=== PATIENT | male | born 1965 | race Caucasian/White ===

== ENCOUNTER 2018-05-28 07:12 | Inpatient (IN) | payer MEDICAID, OTHER ==
--- NOTE | 2018-05-28 07:44 | ED PDOC ---
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 Additionally, he reports experiencing shortness of breath, productive cough with green phlegm, congestion, runny nose, nausea, diaphoresis, dizziness, and bodyaches for the past 2 days. No vomiting, abdominal pain, or similar symptoms in the past. 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 PCP: none provided Past Medical History Reviewed: Historical Data, Nursing Documentation, Vital Signs Vital Signs: Last Vital Signs Temp 98.5 F 05/28/18 07:21 Pulse 97 H 05/28/18 07:21 Resp 17 05/28/18 07:21 BP 118/71 05/28/18 07:21 Pulse Ox 98 05/28/18 07:25 - Medical History PMH: Asthma, COPD, Depression, Fractures (right elbow), HTN, Hypercholesterolemia, Hyperthyroidism, Hypothyroidism, Paranoia (As per MD report), Sleep Apnea Denies: Alzheimer's Disease, Anemia, Atrial Fibrillation, CAD, HIV, Chronic Kidney Disease Comment Only: Anxiety (As per MD report), Bipolar Disorder (As per MD report), Cardia Arrhythmia (As per MD report), CHF (As per MD report), Crohn's Disease (As per MD report), Diverticulitis (As per MD report), Multiple Sclerosis (As per MD report), Osteoporosis (As per MD report), Pancreatitis (As per MD report), Parkinson's Disease (As per MD report), Pneumonia (08/18/13 as per MD report), Post Traumatic Stress Disorder (As per MD report), Rheumatoid Arthritis (As per MD report), Schizophrenia (As per MD report), Sexually Transmi tted Disease (As per MD report) - Surgical History Surgical History: Comment Only: Pacemaker (As per MD report) - Family History Family History: States: Unknown Family Hx - Social History Current smoker - smoking cessation education provided: No Alcohol: None Drugs: Denies - Immunization History Hx Tetanus Toxoid Vaccination: No Hx Influenza Vaccination: No Hx Pneumococcal Vaccination: No - Home Medications Home Medications: Ambulatory Orders Medication Instructions Recorded Aspirin [Ecotrin] 81 mg PO DAILY 05/28/18 Levothyroxine [Synthroid] 150 mg PO DAILY 05/28/18 Pantoprazole Sodium [Protonix] 20 mg PO DAILY 05/28/18 lamiVUDine/Zidovudine [Combivir 1 puff PO DAILY 05/28/18 150 MG-300 MG] traMADol [Ultram] 50 mg PO DAILY 05/28/18 - Allergies Allergies/Adverse Reactions: Allergies Allergy/AdvReac Type Severity Reaction Status Date / Time No Known Allergies Allergy Verified 05/28/18 07:25 Review of Systems ROS Statement: Except As Marked, All Systems Reviewed And Found Negative Constitutional: Positive for: Sweats, Other (generalized bodyaches) ENT: Positive for: Nose Discharge Cardiovascular: Positive for: Chest Pain (midsternal) Respiratory: Positive for: Cough, Shortness of Breath, Sputum (green, thick) Gastrointestinal: Positive for: Nausea. Negative for: Vomiting, Abdominal Pain Neurological: Positive for: Dizziness Physical Exam - Reviewed Nursing Documentation Reviewed: Yes Vital Signs Reviewed: Yes - Physical Exam Appears: Positive for: No Acute Distress, Uncomfortable Head Exam: Positive for: ATRAUMATIC, NORMAL INSPECTION, NORMOCEPHALIC Skin: Positive for: Normal Color. Negative for: Rash Eye Exam: Positive for: Normal appearance, EOMI, PERRL ENT: Positive for: Nasal Congestion. Negative for: Pharyngeal Erythema Cardiovascular/Chest: Positive for: Regular Rate, Rhythm. Negative for: Murmur Respiratory: Positive for: Decreased Breath Sounds, Wheezing (expiratory bilaterally) Pulses-Dorsalis Pedis (L): 2+ Pulses-Dorsalis Pedis (R): 2+ Gastrointestinal/Abdominal: Positive for: Normal Exam, Soft. Negative for: Tenderness Back: Positive for: Normal Inspection Extremity: Positive for: Normal ROM (upper/lower). Negative for: Pedal Edema (bilaterally), Calf Tenderness (upper/lower) Neurological/Psych: Positive for: Awake, Alert, Oriented (x3), Lethargic. Negat joshua for: Motor/Sensory Deficits - Laboratory Results Result Diagrams: 05/28/18 08:04 05/28/18 08:04 Interpretation Of Abn Labs: 3.5 k - ECG ECG: Positive for: Interpreted By Me, Viewed By Me ECG Rhythm: Positive for: Nonspecific Changes O2 Sat by Pulse Oximetry: 98 (RA) Pulse Ox Interpretation: Normal - Radiology X-Ray: Read By Radiologist X-Ray Interpretation: No Acute Disease - Progress ED Course And Treament: 1136: Stable. AAOx3. Spoke with Isaak for Dr. Landers. Will admit tele obs. No pain. Medical Decision Making Medical Decision Making: Time: 734 Initial Plan: * Labs with blood culture * EKG * CXR * Duoneb INH * IV fluid * Solu-Medrol IVP * Influenza AB Time: 844 --Patient requests medication for persistent phlegm. Halina Moses additionally ordered. Scribe Attestation: Documented by Karolina Estrada, acting as a scribe for Jaime Rodriguez MD. Provider Scribe Attestation: All medical record entries made by the Scribe were at my direction and personally dictated by me. I have reviewed the chart and agree that the record accurately reflects my personal performance of the history, physical exam, medical decision making, and the department course for this patient. I have also personally directed, reviewed, and agree with the discharge instructions and disposition. Disposition - Clinical Impression Clinical Impression: Chest pain, COPD exacerbation, Hypokalemia - Patient ED Disposition Is Patient to be Admitted: Yes Counseled Patient/Family Regarding: Studies Performed, Diagnosis - Disposition Disposition Time: 10:00 Condition: FAIR - Pt Status Changed To: Hospital Disposition Of: Observation - POA Present On Arrival: None
[2018-05-28] MEDS ORDERED: Albuterol-Ipratrop 3 mg / 0.5 (3 ml) UD IH STA ×2 (07:49→07:50)
[2018-05-28] MEDS ORDERED: Albuterol-Ipratrop 3 mg / 0.5 (3 ml) UD INH STA (07:49)
[2018-05-28] MEDS ORDERED: Sodium Chloride 0.9% 1,000 ML IV STA (07:49)
[2018-05-28 08:08] LABS: ABG ALLEN TEST YES; ARTERIAL BLOOD GAS HCO3 25.2 mmol/L (21-28); ARTERIAL BLOOD GAS PCO2 37 mm/Hg (35-45); ARTERIAL BLOOD GAS PH 7.43 (7.35-7.45); ARTERIAL BLOOD GAS PO2 71 mm/Hg (80-100); ARTERIAL BLOOD GAS TCO2 25.7 mmol/L (22-28)
[2018-05-28 08:14] LABS: BASO # 0.1 K/uL (0.0-0.2); BASO % 0.8 % (0.0-2.0); EOS # 0.1 K/uL (0.0-0.7); EOS % 1.4 % (0.0-4.0); HEMOGLOBIN 17.1 g/dL (12.0-18.0); LYMPH # 1.9 K/uL (1.0-4.3); LYMPH % 18.7 % (20.0-40.0); MEAN CELL VOLUME 97.3 fl (80.0-94.0); MEAN CORPUSCULAR HEMOGLOBIN 33.1 pg (27.0-31.0); MEAN CORPUSCULAR HGB CONC 34.1 g/dL (33.0-37.0); MONO # 0.6 K/uL (0.0-0.8); MONO % 6.4 % (0.0-10.0); NEUT # 7.2 K/uL (1.8-7.0); NEUT % 72.7 % (50.0-75.0); NRBC % 0.2 % (0.0-0.0); RBC 5.17 Mil/uL (4.40-5.90); RED CELL DISTRIBUTION WIDTH 14.1 % (11.5-14.5); WHITE BLOOD COUNT 9.9 K/uL (4.8-10.8)
[2018-05-28 08:23] LABS: ALB/GLOB RATIO 1.4 (1.0-2.1); ALBUMIN 4.5 g/dL (3.5-5.0); BLOOD UREA NITROGEN 9 mg/dl (9-20); CALCIUM 9.8 mg/dL (8.4-10.2); GFR NON-AFRICAN AMERICAN > 60
[2018-05-28 08:26] LABS: ALT/SGPT 35 U/L (21-72); AST/SGOT 46 U/L (17-59)
[2018-05-28 08:31] LABS: B-TYPE NATRIURETIC PEPTIDE 574 pg/ml (0-900)
[2018-05-28 09:24] LABS: PROTHROMBIN TIME 11.2 Seconds (9.8-13.1)
--- NOTE | 2018-05-28 09:47 | RAD ---
Date of service: 05/28/2018 HISTORY: dyspnea COMPARISON: Chest radiograph dated 12/14/2015. TECHNIQUE: 1 view obtained. FINDINGS: LUNGS: No active pulmonary disease. PLEURA: No significant pleural effusion identified, no pneumothorax apparent. CARDIOVASCULAR: No aortic atherosclerotic calcification present. Normal cardiac size. No pulmonary vascular congestion. OSSEOUS STRUCTURES: No significant abnormalities. VISUALIZED UPPER ABDOMEN: Normal. OTHER FINDINGS: None. IMPRESSION: No active disease.
[2018-05-28] MEDS ORDERED: Potassium Chloride 20 mEq ER Tab PO STA (11:34)
[2018-05-28] MEDS ORDERED: Potassium Chloride 20 mEq ER Tab PO ONE (12:01)
[2018-05-28 16:01] LABS: PARTIAL THROMBOPLASTIN TIME 36.5 Seconds (25.6-37.1)
[2018-05-28] MEDS ORDERED: Albuterol-Ipratrop 3 mg / 0.5 (3 ml) UD INH PRN (17:02)
[2018-05-28 17:45] VITALS: BMI 44.5
[2018-05-28] MEDS ORDERED: Azithromycin 500 MG in Sodium Chloride 0.9% 250 ML IVPB SCH (18:45)
--- NOTE | 2018-05-28 20:30 | CARD ---
APPROVED REPORT Date of service: 05/28/2018 EKG Measurement Heart [id number] <Conclusion> Normal sinus rhythm Possible Left atrial enlargement Left ventricular hypertrophy with repolarization abnormality Cannot rule out Septal infarct, age undetermined Abnormal ECG
[2018-05-28] MEDS: Piperacillin/Tazobact 3.375 GM in Sodium Chloride 0.9% 100 ML IVPB SCH (21:24)
[2018-05-28] MEDS: guaiFENesin-DM 600-30 mg ER Tab PO SCH (21:31)
[2018-05-29] MEDS: Piperacillin/Tazobact 3.375 GM in Sodium Chloride 0.9% 100 ML IVPB SCH ×4 (04:26→21:43)
[2018-05-29 06:56] LABS: BASO % 0.1 % (0.0-2.0); HEMOGLOBIN 16.8 g/dL (12.0-18.0); LYMPH % 6.1 % (20.0-40.0); MEAN CELL VOLUME 98.6 fl (80.0-94.0); MEAN CORPUSCULAR HGB CONC 33.5 g/dL (33.0-37.0); MEAN PLATELET VOLUME 10.3 fl (7.2-11.7); MONO # 0.4 K/uL (0.0-0.8); MONO % 2.4 % (0.0-10.0); NEUT % 91.4 % (50.0-75.0); PLATELET COUNT 279 K/uL (130-400); RBC 5.08 Mil/uL (4.40-5.90); RED CELL DISTRIBUTION WIDTH 14.6 % (11.5-14.5); WHITE BLOOD COUNT 16.4 K/uL (4.8-10.8)
[2018-05-29 07:24] LABS: ALB/GLOB RATIO 1.4 (1.0-2.1); ALBUMIN 4.4 g/dL (3.5-5.0); ALT/SGPT 34 U/L (21-72); AST/SGOT 30 U/L (17-59); BLOOD UREA NITROGEN 11 mg/dl (9-20); CALCIUM 10.1 mg/dL (8.4-10.2); GFR NON-AFRICAN AMERICAN > 60
[2018-05-29] MEDS: guaiFENesin-DM 600-30 mg ER Tab PO SCH ×3 (08:58→18:37)
[2018-05-29] MEDS: Pantoprazole 20 mg EC Tab PO SCH (08:59)
[2018-05-29] MEDS ORDERED: COMBIVENT PO SCH (09:00)
[2018-05-29] MEDS: Levothyroxine 150 MCG TAB PO SCH (09:02)
[2018-05-29] MEDS: Albuterol-Ipratrop 3 mg / 0.5 (3 ml) UD INH SCH ×5 (10:10→23:29)
[2018-05-29] MEDS ORDERED: Sodium Chloride 3% for Inhalation 4 ML VIAL.NEB IH PRN (12:26)
[2018-05-29 13:10] LABS: LYMPHOCYTE 4 % (20-50); MONOCYTE 2 % (0-10); NEUTROPHIL 94 % (42-75); PLATELET ESTIMATE NORMAL (NORMAL); TOTAL CELLS COUNTED 100
[2018-05-29] MEDS: MethylPREDNISolone 40 mg Vial IVP SCH (18:33)
[2018-05-29] MEDS: Benzocaine/Menthol (Cepacol) Lozenge PO PRN (19:22)
--- NOTE | 2018-05-29 19:57 | CP.PCM.CON ---
History of Present Illness - History of Present Illness History of Present Illness: Pulmonary consult for a 53 Y/O M, due to COPD Exacerbation. PMHx: COPD/Asthma, Sleep Apnea, A Fib, CAD, HTN, Hypercholesterolemia, Hypothyroidism, Paranoia. Initially, Pt came to hospital for evaluation of CP L sided x 2 hrs [employer], pain was continue, tightness type, severe intensity 9:10, non radiated and no relief, associated to nausea, dizziness, no vomiting. 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 Aggravated factor: Exercise, ADL's. Pt denied: Fever, chills, v/d, abdominal pain, urinary symptoms, palpitations, syncope, recent travel out of [facility]. CXR: No active disease. Review of Systems - Constitutional Constitutional: As Per HPI - EENT Eyes: Other (negative) Ears: Other (negative) Nose/Mouth/Throat: Nasal Congestion - Cardiovascular Cardiovascular: Chest Pain - Respiratory Respiratory: Cough, Dyspnea, Dyspnea on Exertion, Change in Mucous Color, Pain with Coughing - Gastrointestinal Gastrointestinal: Nausea - Genitourinary Genitourinary: Other (negative) - Musculoskeletal Musculoskeletal: Arthralgias, Other (negative) - Integumentary Integumentary: Other (negative) - Neurological Neurological: Dizziness - Psychiatric Psychiatric: Other (negative) - Endocrine Endocrine: Other (negative) - Hematologic/Lymphatic Hematologic: Other (negative) Past Patient History - Infectious Disease Hx of Infectious Diseases: None - Past Medical History & Family History Past Medical History?: Yes Pertinent Family History: Unknown - Past Social History Smoking Status: Former Smoker Alcohol: None Drugs: Other (Former drug abuse (Cocaine)) Home Situation {Lives}: Alone - CARDIAC Hx Cardiac Disorders: Yes Hx Atrial Fibrillation: Yes Hx Cardia Arrhythmia: (As per MD report) Hx Congestive Heart Failure: (As per MD report) Hx Hypercholesterolemia: Yes Hx Hypertension: Yes Hx Pacemaker: Yes (As per MD report) - PULMONARY Hx Respiratory Disorders: Yes Hx Asthma: Yes Hx Chronic Obstructive Pulmonary Disease (COPD): Yes Hx Pneumonia: Yes (08/18/13 as per MD report) Hx Sleep Apnea: Yes - NEUROLOGICAL Hx Alzheimer's Disease: No Hx Multiple Sclerosis: (As per MD report) Hx Parkinson's Disease: (As per MD report) - HEENT Hx HEENT Problems: No - RENAL Hx Chronic Kidney Disease: No - ENDOCRINE/METABOLIC Hx Endocrine Disorders: Yes Hx Hyperthyroidism: Yes Hx Hypothyroidism: Yes - HEMATOLOGICAL/ONCOLOGICAL Hx Anemia: No - INTEGUMENTARY Hx Dermatological Problems: No - MUSCULOSKELETAL/RHEUMATOLOGICAL Hx Musculoskeletal Disorders: Yes Hx Falls: No Hx Fractures: Yes (right elbow) Hx Osteoporosis: (As per MD report) Hx Rheumatoid Arthritis: (As per MD report) - GASTROINTESTINAL Hx Crohn's Disease: (As per MD report) Hx Diverticulitis: (As per MD report) Hx Pancreatitis: (As per MD report) - GENITOURINARY/GYNECOLOGICAL Hx Sexually Transmitted Disorders: (As per MD report) - PSYCHIATRIC Hx Psychophysiologic Disorder: Yes Hx Anxiety: Yes (As per MD report) Hx Bipolar Disorder: (As per MD report) Hx Depression: Yes Hx Paranoia: Yes (As per MD report) Hx Post Traumatic Stress Disorder: (As per MD report) Hx Schizophrenia: (As per MD report) Hx Substance Use: No - SURGICAL HISTORY Hx Surgeries: Yes Hx Musculoskeletal Surgery: Yes (L hip replacement) Hx Open Reduction Internal Fixation: Yes (R elbow) - ANESTHESIA Hx Anesthesia: Yes Hx Anesthesia Reactions: No Hx Malignant Hyperthermia: No Meds Allergies/Adverse Reactions: Allergies Allergy/AdvReac Type Severity Reaction Status Date / Time No Known Allergies Allergy Verified 05/28/18 07:25 - Medications Medications: Current Medications Albuterol/Ipratropium (Duoneb 3 Mg/0.5 Mg (3 Ml) Ud) 3 ml INH RQ4 [facility] Last Admin: 05/29/18 19:53 Dose: 3 ml Aspirin (Ecotrin) 81 mg PO DAILY [facility] Last Admin: 05/29/18 08:54 Dose: 81 mg Benzocaine/Menthol (Cepacol Sore Throat) 1 susanne PO Q3 PRN PRN Reason: Sore Throat Last Admin: 05/29/18 19:22 Dose: 1 susanne Enoxaparin Sodium (Lovenox) 40 mg SC DAILY [facility]; Protocol Guaifenesin/Dextromethorphan (Mucinex-Dm 600-30 Mg) 2 tab PO BID [facility] Last Admin: 05/29/18 18:37 Dose: 2 tab Home Med (Lamivudine/Zidovudine [Combivir 150 Mg-300 Mg]) 1 puff PO DAILY [facility] Piperacillin Sod/Tazobactam (Sod 3.375 gm/ Sodium Chloride) 100 mls @ 100 mls/hr IVPB Q6 [facility]; Protocol Last Admin: 05/29/18 18:32 Dose: 100 mls/hr Levothyroxine Sodium (Synthroid) 150 mcg PO DAILY [facility] Last Admin: 05/29/18 09:02 Dose: 150 mcg Methylprednisolone (Solu-Medrol) 40 mg IVP Q8 [facility] Last Admin: 05/29/18 18:33 Dose: 40 mg Pantoprazole Sodium (Protonix Ec Tab) 20 mg PO DAILY [facility] Last Admin: 05/29/18 08:59 Dose: 20 mg Promethazine HCl/Codeine (Phenergan/Codeine Oral Syrup) 10 ml PO Q6 PRN PRN Reason: Cough Tramadol HCl (Ultram) 50 mg PO Q6 PRN PRN Reason: Pain, moderate (4-7) Last Admin: 05/29/18 18:53 Dose: 50 mg Physical Exam - Constitutional Appears: No Acute Distress - Head Exam Head Exam: NORMAL INSPECTION - Eye Exam Eye Exam: PERRL - ENT Exam ENT Exam: Mucous Membranes Moist - Neck Exam Neck exam: Positive for: Normal Inspection - Respiratory Exam Respiratory Exam: Decreased Breath Sounds (at bases b/l), Rhonchi, Wheezes - Cardiovascular Exam Cardiovascular Exam: REGULAR RHYTHM - GI/Abdominal Exam GI & Abdominal Exam: Normal Bowel Sounds, Soft - Extremities Exam Additional comments: Healed Fx R elbow, L THR - Back Exam Back exam: NORMAL INSPECTION - Neurological Exam Neurological exam: Alert, Oriented x3 Additional comments: No motor/sensory deficit. - Psychiatric Exam Additional comments: Calm - Skin Skin Exam: Warm Results - Vital Signs Recent Vital Signs: Last Vital Signs Temp 97.8 F 05/29/18 16:20 Pulse 100 H 05/29/18 16:20 Resp 18 05/29/18 16:20 BP 126/86 05/29/18 16:20 Pulse Ox 92 L 05/29/18 16:20 reviewed Oren - Labs Result Diagrams: 05/29/18 05:32 05/30/18 11:05 Labs: Laboratory Results - last 24 hr 05/29/18 05/29/18 05/29/18 05:32 05:32 05:32 WBC 16.4 H D RBC 5.08 Hgb 16.8 Hct 50.1 MCV 98.6 H MCH 33.0 H MCHC 33.5 RDW 14.6 H Plt Count 279 MPV 10.3 Neut % (Auto) 91.4 H Lymph % (Auto) 6.1 L [place] % (Auto) 2.4 Eos % (Auto) 0.0 Baso % (Auto) 0.1 Neut # (Auto) 15.0 H Lymph # (Auto) 1.0 [place] # (Auto) 0.4 Eos # (Auto) 0.0 Baso # (Auto) 0.0 Neutrophils % (Manual) 94 H Lymphocytes % (Manual) 4 L Monocytes % (Manual) 2 Platelet Estimate Normal RBC Morphology Normal Sodium 136 Potassium 4.6 Chloride 102 Carbon Dioxide 24 Anion Gap 15 BUN 11 Creatinine 1.2 Est GFR ( Amer) > 60 Est GFR (Non-Af Amer) > 60 Random Glucose 160 H Calcium 10.1 Total Bilirubin 0.6 AST 30 ALT 34 Alkaline Phosphatase 56 Total Protein 7.6 Albumin 4.4 Globulin 3.1 Albumin/Globulin Ratio 1.4 Procalcitonin < 0.05 L reviewed J.P. - EKG Data EKG comments: reviewed J.P. - Imaging and Cardiology Chest x-ray Status: Report reviewed by me (DavidP.) Assessment & Plan (1) COPD exacerbation Status: Acute Priority: High (2) Nasal congestion Status: Acute Priority: High (3) Lung nodule seen on imaging study Status: Acute Comment: On 11/19/15. - Assessment and Plan (Free Text) Plan: F/U Sputum C-S, CT Chest, continue O2 NC 2 L/M, Duoneb, Solu-Medrol, Promethazine with Co, Mucinex DM and rest of Tx. - Date & Time Date: 05/29/18
[2018-05-29] MEDS: Enoxaparin 40 mg Syringe SC SCH (21:45)
[2018-05-30] MEDS: MethylPREDNISolone 40 mg Vial IVP SCH ×3 (00:05→16:35)
--- NOTE | 2018-05-30 03:00 | CP.PCM.HP ---
History of Present Illness - History of Present Illness History of Present Illness: HPI: 53 y/o male with a PMH of Asthma and COPD presented to the ED with worsening dyspnea and chest pain. As per the pt, he has been experiencing an increasing cough with yellow/green sputum in the week up to arrival, as well as flu-like symptoms. He is currently on combivent at home. Flu swab and CXR was do ne, both resulted as negative. As PNA and Influenza are ruled out at this time, this appears to be a COPD exacerbation. PMH: Asthma, COPD, Depression, Fractures (right elbow), HTN, Hypercholesterolemia, Hyperthyroidism, Hypothyroidism, Paranoia (As per MD report), Sleep Apnea. PSH: Pacemaker. Allergies: NKDA. Subjective Review of Systems: Reviewed and no additional remarkable complaints except occasional dyspnea. Objective Appears: Anxious, Non-toxic, No Acute Distress. Head Exam: NORMAL INSPECTION, normocephalic. Eye Exam: Normal eye inspection, EOMI, PERRLA. Respiratory Exam: NORMAL BREATHING PATTERN, breath sounds clear bilaterally. Cardiovascular Exam: +S1, +S2. RRR. GI & Abdominal Exam: Round, soft, non-tender. Neurological Exam: Alert, Awake, Oriented x3. Psychiatric exam: Normal mood. Calm and cooperative. Skin exam: Normal color, warm, dry. Assessment/Impression/Plan: 1.) COPD Exacerbation -Empiric antibiotic therapy: Zosyn. -Symptomatic treatment: Duonebs + Mucinex + Tessalon Perles. -Steroids: Decreased solu-medrol to 60 mg BID. -CXR revealed no acute disease. -Pulmonology consult appreciated input. -Leukocytosis secondary to steroids (solu-medrol). -Continue current treatment. Present on Admission - Present on Admission Any Indicators Present on Admission: No Past Patient History - Infectious Disease Hx of Infectious Diseases: None - Past Medical History & Family History Past Medical History?: Yes - Past Social History Smoking Status: Former Smoker - CARDIAC Hx Cardiac Disorders: Yes Hx Atrial Fibrillation: Yes Hx Cardia Arrhythmia: (As per MD report) Hx Congestive Heart Failure: (As per MD report) Hx Hypercholesterolemia: Yes Hx Hypertension: Yes Hx Pacemaker: Yes (As per MD report) - PULMONARY Hx Asthma: Yes Hx Chronic Obstructive Pulmonary Disease (COPD): Yes Hx Pneumonia: Yes (08/18/13 as per MD report) Hx Sleep Apnea: Yes - NEUROLOGICAL Hx Alzheimer's Disease: No Hx Multiple Sclerosis: (As per MD report) Hx Parkinson's Disease: (As per MD report) - HEENT Hx HEENT Problems: No - RENAL Hx Chronic Kidney Disease: No - ENDOCRINE/METABOLIC Hx Hyperthyroidism: Yes Hx Hypothyroidism: Yes - HEMATOLOGICAL/ONCOLOGICAL Hx Anemia: No - INTEGUMENTARY Hx Dermatological Problems: No - MUSCULOSKELETAL/RHEUMATOLOGICAL Hx Falls: No Hx Fractures: Yes (right elbow) Hx Osteoporosis: (As per MD report) Hx Rheumatoid Arthritis: (As per MD report) - GASTROINTESTINAL Hx Crohn's Disease: (As per MD report) Hx Diverticulitis: (As per MD report) Hx Pancreatitis: (As per MD report) - GENITOURINARY/GYNECOLOGICAL Hx Sexually Transmitted Disorders: (As per MD report) - PSYCHIATRIC Hx Anxiety: (As per MD report) Hx Bipolar Disorder: (As per MD report) Hx Depression: Yes Hx Paranoia: Yes (As per MD report) Hx Post Traumatic Stress Disorder: (As per MD report) Hx Schizophrenia: (As per MD report) Hx Substance Use: No - ANESTHESIA Hx Anesthesia: Yes Hx Anesthesia Reactions: No Hx Malignant Hyperthermia: No Meds Allergies/Adverse Reactions: Allergies Allergy/AdvReac Type Severity Reaction Status Date / Time No Known Allergies Allergy Verified 05/28/18 07:25 Results - Vital Signs Recent Vital Signs: Last Vital Signs Temp 97.5 F L 05/30/18 01:00 Pulse 80 05/30/18 01:00 Resp 20 05/30/18 01:00 BP 132/75 05/30/18 01:00 Pulse Ox 95 05/30/18 01:00 - Labs Result Diagrams: 05/29/18 05:32 05/29/18 05:32 Labs: Laboratory Results - last 24 hr 05/29/18 05/29/18 05/29/18 05:32 05:32 05:32 WBC 16.4 H D RBC 5.08 Hgb 16.8 Hct 50.1 MCV 98.6 H MCH 33.0 H MCHC 33.5 RDW 14.6 H Plt Count 279 MPV 10.3 Neut % (Auto) 91.4 H Lymph % (Auto) 6.1 L [place] % (Auto) 2.4 Eos % (Auto) 0.0 Baso % (Auto) 0.1 Neut # (Auto) 15.0 H Lymph # (Auto) 1.0 [place] # (Auto) 0.4 Eos # (Auto) 0.0 Baso # (Auto) 0.0 Neutrophils % (Manual) 94 H Lymphocytes % (Manual) 4 L Monocytes % (Manual) 2 Platelet Estimate Normal RBC Morphology Normal Sodium 136 Potassium 4.6 Chloride 102 Carbon Dioxide 24 Anion Gap 15 BUN 11 Creatinine 1.2 Est GFR ( Amer) > 60 Est GFR (Non-Af Amer) > 60 Random Glucose 160 H Calcium 10.1 Total Bilirubin 0.6 AST 30 ALT 34 Alkaline Phosphatase 56 Total Protein 7.6 Albumin 4.4 Globulin 3.1 Albumin/Globulin Ratio 1.4 Procalcitonin < 0.05 L Assessment & Plan (1) COPD exacerbation Status: Acute
[2018-05-30] MEDS: Piperacillin/Tazobact 3.375 GM in Sodium Chloride 0.9% 100 ML IVPB SCH ×2 (04:17→09:07)
[2018-05-30] MEDS: Albuterol-Ipratrop 3 mg / 0.5 (3 ml) UD INH SCH ×5 (05:02→19:18)
[2018-05-30] MEDS: Levothyroxine 150 MCG TAB PO SCH (09:09)
[2018-05-30] MEDS: guaiFENesin-DM 600-30 mg ER Tab PO SCH ×2 (09:10→16:36)
[2018-05-30] MEDS: Enoxaparin 40 mg Syringe SC SCH (09:10)
[2018-05-30] MEDS: Pantoprazole 20 mg EC Tab PO SCH (09:11)
[2018-05-30] MEDS: Promethazine/Cod 6.25mg-10mg/5ml Syr UD PO PRN ×2 (09:27→16:54)
[2018-05-30 11:46] LABS: BLOOD UREA NITROGEN 14 mg/dl (9-20); CALCIUM 10.6 mg/dL (8.4-10.2); GFR NON-AFRICAN AMERICAN 58
[2018-05-30] MEDS: Acetylcysteine 20% Inhal Soln (4ml) INH SCH ×2 (12:23→19:18)
--- NOTE | 2018-05-30 15:09 | CT ---
Date of service: 05/30/2018 PROCEDURE: CT Chest without contrast HISTORY: COPD Exacerbation, Hx Pulmonary Nodule COMPARISON: 11/19/2015. CT thorax. Summary of findings on the comparison examination: 8 mm right lower lobe pulmonary nodule. TECHNIQUE: Contiguous axial images were obtained through the chest without intravenous contrast enhancement. Sagittal and coronal reconstructions were performed. Radiation dose: Total exam DLP = 616.86 mGy-cm. This CT exam was performed using one or more of the following dose reduction techniques: Automated exposure control, adjustment of the mA and/or kV according to patient size, and/or use of iterative reconstruction technique. FINDINGS: LUNGS: Stable pulmonary nodule right lower lobe, 8 mm. Parabronchial thickening/lower airway disease, mild. MEDIASTINUM: Unremarkable thoracic aorta. No aneurysm. Normal sized heart. Main pulmonary artery unremarkable. No vascular congestion. No lymphadenopathy. No aortic atherosclerotic calcification. PLEURA: No pleural fluid. No pneumothorax. BONES: No fracture. No destructive lesion. UPPER ABDOMEN: Grossly unremarkable. OTHER FINDINGS: None. IMPRESSION: Stable right lower lobe pulmonary nodule. Lower airway disease/bronchitis. No interval change.
--- NOTE | 2018-05-30 15:48 | CP.PCM.PN ---
Subjective - Date & Time of Evaluation Date of Evaluation: 05/30/18 Time of Evaluation: 14:20 - Subjective Subjective: F/U COPD Exacerbation. Cough with scanty amount of yellowish phlegms. Objective - Vital Signs/Intake and Output Vital Signs (last 24 hours): Temp Pulse Resp BP Pulse Ox 98.6 F 100 H 22 135/77 97 05/30/18 12:15 05/30/18 12:15 05/30/18 12:15 05/30/18 12:15 05/30/18 12:15 - Medications Medications: Current Medications Acetaminophen (Tylenol 325mg Tab) 650 mg PO Q6 PRN PRN Reason: Pain, moderate (4-7) Acetylcysteine (Acetylcysteine 20%) 2 ml INH RBID [facility] Last Admin: 05/30/18 12:23 Dose: Not Given Albuterol/Ipratropium (Duoneb 3 Mg/0.5 Mg (3 Ml) Ud) 3 ml INH RQ4 [facility] Last Admin: 05/30/18 15:23 Dose: 3 ml Aspirin (Ecotrin) 81 mg PO DAILY [facility] Last Admin: 05/30/18 09:09 Dose: 81 mg Benzocaine/Menthol (Cepacol Sore Throat) 1 susanne PO Q3 PRN PRN Reason: Sore Throat Last Admin: 05/29/18 19:22 Dose: 1 susanne Enoxaparin Sodium (Lovenox) 40 mg SC DAILY [facility]; Protocol Last Admin: 05/30/18 09:10 Dose: 40 mg Famotidine (Pepcid) 20 mg PO BID [facility] Last Admin: 05/30/18 11:31 Dose: 20 mg Guaifenesin/Dextromethorphan (Mucinex-Dm 600-30 Mg) 2 tab PO BID [facility] Last Admin: 05/30/18 09:10 Dose: 2 tab Home Med (Lamivudine/Zidovudine [Combivir 150 Mg-300 Mg]) 1 puff PO DAILY [facility] Lactulose (Enulose) 20 gm PO DAILY PRN PRN Reason: Constipation Last Admin: 05/30/18 13:52 Dose: 20 gm Levothyroxine Sodium (Synthroid) 150 mcg PO DAILY [facility] Last Admin: 05/30/18 09:09 Dose: 150 mcg Methylprednisolone (Solu-Medrol) 40 mg IVP Q8 [facility] Last Admin: 05/30/18 09:00 Dose: 40 mg Pantoprazole Sodium (Protonix Ec Tab) 20 mg PO DAILY [facility] Last Admin: 05/30/18 09:11 Dose: 20 mg Promethazine HCl/Codeine (Phenergan/Codeine Oral Syrup) 10 ml PO Q6 PRN PRN Reason: Cough Last Admin: 05/30/18 09:27 Dose: 10 ml Tramadol HCl (Ultram) 50 mg PO Q6 PRN PRN Reason: Pain, moderate (4-7) Last Admin: 05/30/18 09:26 Dose: 50 mg - Labs Labs: 05/29/18 05:32 05/30/18 11:05 PT 11.2 Seconds (9.8-13.1) 05/28/18 08:38 INR 1.0 05/28/18 08:38 APTT 36.5 Seconds (25.6-37.1) 05/28/18 08:38 - Constitutional Appears: No Acute Distress - Head Exam Head Exam: NORMAL INSPECTION - Eye Exam Eye Exam: PERRL - ENT Exam ENT Exam: Mucous Membranes Moist - Neck Exam Neck Exam: Normal Inspection - Respiratory Exam Respiratory Exam: Decreased Breath Sounds (At bases b/l), Rhonchi, Wheezes - Cardiovascular Exam Cardiovascular Exam: REGULAR RHYTHM - GI/Abdominal Exam GI & Abdominal Exam: Soft, Normal Bowel Sounds - Extremities Exam Additional comments: Healed Fx R elbow, L THR - Back Exam Back Exam: NORMAL INSPECTION - Neurological Exam Neurological Exam: Alert, Oriented x3. absent: Motor Sensory Deficit - Psychiatric Exam Additional comments: Calm - Skin Skin Exam: Warm Assessment and Plan (1) COPD exacerbation Status: Acute (2) Nasal congestion Status: Acute (3) Lung nodule seen on imaging study Status: Acute - Assessment and Plan (Free Text) Plan: F/U CT Chest, continue Duoneb, Solu-Medrol, Duoneb, Mucomyst, Prometh with Codeine and rest of Tx.
[2018-05-30] MEDS: Benzocaine/Menthol (Cepacol) Lozenge PO PRN (16:54)
--- NOTE | 2018-05-30 19:38 | CP.PCM.PN ---
Subjective - Date & Time of Evaluation Date of Evaluation: 05/30/18 Time of Evaluation: 10:00 - Subjective Subjective: patient seen and examined at bedside. Interim events noted complains of continued intermittent chest discomfort, cough and sob. denies cp/fever/chills. available diagnostic data reviewed Review of Systems All systems: reviewed and no additional remarkable complaints except mentioned above Objective Vital Signs Stable - Constitutional Appears: Non-toxic, No Acute Distress Head Exam: NORMAL INSPECTION Eye Exam: Normal appearance Respiratory Exam: NORMAL BREATHING PATTERN, wheezing bilaterally Cardiovascular Exam: +S1, +S2 GI & Abdominal Exam: Soft Neurological Exam: Alert, Awake Psychiatric exam: Normal Affect, Normal Mood Skin Exam: Normal Color, Warm Assessment and Plan monitor vitals monitor labs Cont meds Cont tx consultants appreciated input c/w steroids d/c IV abx, procalcitonin neg troponine trial pepcid CT chest today, pending rest of plan as ordered Objective - Vital Signs/Intake and Output Vital Signs (last 24 hours): Temp Pulse Resp BP Pulse Ox 98.6 F 93 H 16 112/77 95 05/30/18 16:31 05/30/18 16:31 05/30/18 16:31 05/30/18 16:31 05/30/18 16:31 - Medications Medications: Current Medications Acetaminophen (Tylenol 325mg Tab) 650 mg PO Q6 PRN PRN Reason: Pain, moderate (4-7) Last Admin: 05/30/18 16:52 Dose: 650 mg Acetylcysteine (Acetylcysteine 20%) 2 ml INH RBID [facility] Last Admin: 05/30/18 19:18 Dose: 2 ml Albuterol/Ipratropium (Duoneb 3 Mg/0.5 Mg (3 Ml) Ud) 3 ml INH RQ4 [facility] Last Admin: 05/30/18 19:18 Dose: 3 ml Aspirin (Ecotrin) 81 mg PO DAILY [facility] Last Admin: 05/30/18 09:09 Dose: 81 mg Benzocaine/Menthol (Cepacol Sore Throat) 1 susanne PO Q3 PRN PRN Reason: Sore Throat Last Admin: 05/30/18 16:54 Dose: 1 susanne Enoxaparin Sodium (Lovenox) 40 mg SC DAILY [facility]; Protocol Last Admin: 05/30/18 09:10 Dose: 40 mg Famotidine (Pepcid) 20 mg PO BID [facility] Last Admin: 05/30/18 16:35 Dose: 20 mg Guaifenesin/Dextromethorphan (Mucinex-Dm 600-30 Mg) 2 tab PO BID [facility] Last Admin: 05/30/18 16:36 Dose: 2 tab Home Med (Lamivudine/Zidovudine [Combivir 150 Mg-300 Mg]) 1 puff PO DAILY [facility] Lactulose (Enulose) 20 gm PO DAILY PRN PRN Reason: Constipation Last Admin: 05/30/18 13:52 Dose: 20 gm Levothyroxine Sodium (Synthroid) 150 mcg PO DAILY [facility] Last Admin: 05/30/18 09:09 Dose: 150 mcg Methylprednisolone (Solu-Medrol) 40 mg IVP Q8 [facility] Last Admin: 05/30/18 16:35 Dose: 40 mg Pantoprazole Sodium (Protonix Ec Tab) 20 mg PO DAILY [facility] Last Admin: 05/30/18 09:11 Dose: 20 mg Promethazine HCl/Codeine (Phenergan/Codeine Oral Syrup) 10 ml PO Q6 PRN PRN Reason: Cough Last Admin: 05/30/18 16:54 Dose: 10 ml Tramadol HCl (Ultram) 50 mg PO Q6 PRN PRN Reason: Pain, moderate (4-7) Last Admin: 05/30/18 09:26 Dose: 50 mg - Labs Labs: 05/29/18 05:32 05/30/18 11:05 PT 11.2 Seconds (9.8-13.1) 05/28/18 08:38 INR 1.0 05/28/18 08:38 APTT 36.5 Seconds (25.6-37.1) 05/28/18 08:38 Assessment and Plan (1) COPD exacerbation Status: Acute
[2018-05-31] MEDS: Albuterol-Ipratrop 3 mg / 0.5 (3 ml) UD INH SCH ×6 (00:01→19:42)
[2018-05-31] MEDS: MethylPREDNISolone 40 mg Vial IVP SCH ×5 (00:07→21:23)
[2018-05-31 05:44] LABS: BLOOD UREA NITROGEN 15 mg/dl (9-20); GFR NON-AFRICAN AMERICAN 58
[2018-05-31 05:49] LABS: HEMOGLOBIN 15.9 g/dL (12.0-18.0); MEAN CELL VOLUME 99.4 fl (80.0-94.0); MEAN CORPUSCULAR HEMOGLOBIN 33.2 pg (27.0-31.0); MEAN CORPUSCULAR HGB CONC 33.4 g/dL (33.0-37.0); RBC 4.8 Mil/uL (4.40-5.90); RED CELL DISTRIBUTION WIDTH 14.7 % (11.5-14.5)
[2018-05-31] MEDS: Levothyroxine 150 MCG TAB PO SCH ×2 (07:49→10:03)
[2018-05-31] MEDS: Benzocaine/Menthol (Cepacol) Lozenge PO PRN (07:51)
[2018-05-31] MEDS: Acetylcysteine 20% Inhal Soln (4ml) INH SCH ×2 (08:10→19:42)
[2018-05-31] MEDS: Enoxaparin 40 mg Syringe SC SCH (08:45)
[2018-05-31] MEDS: Pantoprazole 20 mg EC Tab PO SCH (08:45)
[2018-05-31] MEDS: guaiFENesin-DM 600-30 mg ER Tab PO SCH ×3 (08:46→15:59)
[2018-05-31] MEDS: Promethazine/Cod 6.25mg-10mg/5ml Syr UD PO PRN (10:41)
[2018-05-31] MEDS ORDERED: FLUTICASONE PROPION/SALMETEROL 113-14 IH SCH (12:15)
--- NOTE | 2018-05-31 14:16 | CP.PCM.PN ---
Subjective - Date & Time of Evaluation Date of Evaluation: 05/31/18 Time of Evaluation: 11:50 - Subjective Subjective: F/U COPD Exacerbation. Cough with scanty amount of sick yellowish phlegms,chest congestion. Objective - Vital Signs/Intake and Output Vital Signs (last 24 hours): Temp Pulse Resp BP Pulse Ox 98.3 F 102 H 18 149/95 H 94 L 05/31/18 12:10 05/31/18 12:10 05/31/18 12:10 05/31/18 12:10 05/31/18 12:10 - Medications Medications: Current Medications Acetaminophen (Tylenol 325mg Tab) 650 mg PO Q6 PRN PRN Reason: Pain, moderate (4-7) Last Admin: 05/31/18 10:01 Dose: 650 mg Acetylcysteine (Acetylcysteine 20%) 2 ml INH RBID [facility] Last Admin: 05/31/18 08:10 Dose: 2 ml Albuterol/Ipratropium (Duoneb 3 Mg/0.5 Mg (3 Ml) Ud) 3 ml INH RQ4 [facility] Last Admin: 05/31/18 11:55 Dose: 3 ml Aspirin (Ecotrin) 81 mg PO DAILY [facility] Last Admin: 05/31/18 08:46 Dose: 81 mg Benzocaine/Menthol (Cepacol Sore Throat) 1 susanne PO Q3 PRN PRN Reason: Sore Throat Last Admin: 05/31/18 07:51 Dose: 1 susanne Budesonide (Pulmicort Respules) 0.5 mg IH RBID [facility] Enoxaparin Sodium (Lovenox) 40 mg SC DAILY [facility]; Protocol Last Admin: 05/31/18 08:45 Dose: 40 mg Famotidine (Pepcid) 20 mg PO BID [facility] Last Admin: 05/31/18 09:43 Dose: 20 mg Fluticasone Propionate (Flonase) 1 spr EDISON BID [facility] Last Admin: 05/31/18 12:40 Dose: 1 spr Guaifenesin/Dextromethorphan (Mucinex-Dm 600-30 Mg) 2 tab PO BID [facility] Last Admin: 05/31/18 08:46 Dose: 2 tab Home Med (Lamivudine/Zidovudine [Combivir 150 Mg-300 Mg]) 1 puff PO DAILY [facility] Lactulose (Enulose) 20 gm PO DAILY PRN PRN Reason: Constipation Last Admin: 05/31/18 07:51 Dose: 20 gm Levothyroxine Sodium (Synthroid) 150 mcg PO DAILY [facility] Last Admin: 05/31/18 10:03 Dose: Not Given Methylprednisolone (Solu-Medrol) 40 mg IVP Q6 [facility] Pantoprazole Sodium (Protonix Ec Tab) 20 mg PO DAILY [facility] Last Admin: 05/31/18 08:45 Dose: 20 mg Promethazine HCl/Codeine (Phenergan/Codeine Oral Syrup) 10 ml PO Q6 [facility] Stop: 06/01/18 17:00 Tramadol HCl (Ultram) 50 mg PO Q6 PRN PRN Reason: Pain, moderate (4-7) Last Admin: 05/31/18 13:32 Dose: 50 mg - Labs Labs: 05/31/18 05:15 05/31/18 05:15 PT 11.2 Seconds (9.8-13.1) 05/28/18 08:38 INR 1.0 05/28/18 08:38 APTT 36.5 Seconds (25.6-37.1) 05/28/18 08:38 - Constitutional Appears: No Acute Distress - Head Exam Head Exam: NORMAL INSPECTION - Eye Exam Eye Exam: PERRL - ENT Exam ENT Exam: Mucous Membranes Moist - Neck Exam Neck Exam: Normal Inspection - Respiratory Exam Respiratory Exam: Decreased Breath Sounds (at bases), Rhonchi (scattered), Wheezes (b/l) - Cardiovascular Exam Cardiovascular Exam: REGULAR RHYTHM - GI/Abdominal Exam GI & Abdominal Exam: Soft, Normal Bowel Sounds - Extremities Exam Additional comments: Healed Fx R elbow, L THR - Back Exam Back Exam: NORMAL INSPECTION - Neurological Exam Neurological Exam: Alert, Oriented x3. absent: Motor Sensory Deficit - Psychiatric Exam Additional comments: Calm - Skin Skin Exam: Warm Assessment and Plan (1) COPD exacerbation Status: Acute (2) Nasal congestion Status: Acute (3) Lung nodule seen on imaging study Status: Acute - Assessment and Plan (Free Text) Plan: Sputum C-S= Negative, increased Solu-Medrol, add Pulmicort and Air-duo, Promet hazine 2 tsp q6 hrs prn
[2018-05-31] MEDS: Budesonide 0.5 mg/2 ml Inhal Susp UD IH SCH ×2 (15:43→19:43)
[2018-05-31] MEDS ORDERED: Promethazine/Cod 6.25mg-10mg/5ml Syr UD PO SCH ×2 (16:00→19:00)
--- NOTE | 2018-05-31 16:07 | CT ---
Date of service: 05/31/2018 PROCEDURE: CT HEAD WITHOUT CONTRAST. HISTORY: numbness left arm COMPARISON: None available. TECHNIQUE: Axial computed tomography images were obtained through the head/brain without intravenous contrast. Supplemental Coronal and Sagittal projections created and reviewed. Radiation dose: Total exam DLP = 847.95 mGy-cm. This CT exam was performed using one or more of the following dose reduction techniques: Automated exposure control, adjustment of the mA and/or kV according to patient size, and/or use of iterative reconstruction technique. FINDINGS: HEMORRHAGE: No intracranial hemorrhage. BRAIN: No mass effect or edema. No atrophy or chronic microvascular ischemic changes. VENTRICLES: Unremarkable. No hydrocephalus. CALVARIUM: Unremarkable. PARANASAL SINUSES: Unremarkable as visualized. No significant inflammatory changes. MASTOID AIR CELLS: Unremarkable as visualized. No inflammatory changes. OTHER FINDINGS: None. IMPRESSION: No acute intracranial abnormalities. No significant findings to account for the clinical presentation.
[2018-05-31] MEDS ORDERED: Magnesium Sulfate 2 gm/50 ml 2 GM/50 ML BAG IVPB ONE (18:48)
[2018-05-31] MEDS: Promethazine/Cod 6.25mg-10mg/5ml Syr UD PO SCH ×2 (19:13→20:59)
[2018-05-31] MEDS: FLUTICASONE PROPION/SALMETEROL 113-14 IH SCH (21:23)
--- NOTE | 2018-06-01 00:19 | CP.PCM.PN ---
Subjective - Date & Time of Evaluation Date of Evaluation: 05/31/18 Time of Evaluation: 10:00 - Subjective Subjective: Pt seen and assessed at bedside. Reports mild improvement in symptoms, however still has periods of dyspnea and persistent cough. Subjective Review of Systems: Reviewed and no additional remarkable complaints except occasional dyspnea and headache. Objective Appears: Anxious, Non-toxic, No Acute Distress. Head Exam: NORMAL INSPECTION, normocephalic. Eye Exam: Normal eye inspection, EOMI, PERRLA. Respiratory Exam: Tachypnea, wheezing and rhonchi noted throughout. Cardiovascular Exam: +S1, +S2. RRR. GI & Abdominal Exam: Round, soft, non-tender. Neurological Exam: Alert, Awake, Oriented x3. Psychiatric exam: Normal mood. Calm and cooperative. Skin exam: Normal color, warm, dry. Assessment/Impression/Plan: 1.) COPD Exacerbation -Currently Bronchodilators + steroids + mucolytic. -Consider increasing dose or frequency of steroids if symptoms worsen. -Promethazine with codeine for cough. -Serial CXR's. -CT chest revealed stable right lower lobe pulmonary nodule. -Pulmonology consult appreciated input. -Continue current treatment. Objective - Vital Signs/Intake and Output Vital Signs (last 24 hours): Temp Pulse Resp BP Pulse Ox 97.9 F 100 H 18 146/91 H 90 L 06/01/18 00:09 06/01/18 00:09 06/01/18 00:09 06/01/18 00:09 06/01/18 00:09 - Medications Medications: Current Medications Acetaminophen (Tylenol 325mg Tab) 650 mg PO Q6 PRN PRN Reason: Pain, moderate (4-7) Last Admin: 05/31/18 10:01 Dose: 650 mg Acetylcysteine (Acetylcysteine 20%) 2 ml INH RBID [facility] Last Admin: 05/31/18 19:42 Dose: 2 ml Albuterol/Ipratropium (Duoneb 3 Mg/0.5 Mg (3 Ml) Ud) 3 ml INH RQ4 [facility] Last Admin: 05/31/18 19:42 Dose: 3 ml Aspirin (Ecotrin) 81 mg PO DAILY [facility] Last Admin: 05/31/18 08:46 Dose: 81 mg Benzocaine/Menthol (Cepacol Sore Throat) 1 susanne PO Q3 PRN PRN Reason: Sore Throat Last Admin: 05/31/18 07:51 Dose: 1 susanne Budesonide (Pulmicort Respules) 0.5 mg IH RBID [facility] Last Admin: 05/31/18 19:43 Dose: 0.5 mg Enoxaparin Sodium (Lovenox) 40 mg SC DAILY [facility]; Protocol Last Admin: 05/31/18 08:45 Dose: 40 mg Famotidine (Pepcid) 20 mg PO BID [facility] Last Admin: 05/31/18 19:14 Dose: 20 mg Fluticasone Propionate (Flonase) 1 spr EDISON BID [facility] Last Admin: 05/31/18 19:19 Dose: 1 spr Guaifenesin/Dextromethorphan (Mucinex-Dm 600-30 Mg) 2 tab PO BID [facility] Last Admin: 05/31/18 15:59 Dose: 2 tab Home Med (Lamivudine/Zidovudine [Combivir 150 Mg-300 Mg]) 1 puff PO DAILY [facility] Ibuprofen (Motrin Tab) 600 mg PO Q6 PRN PRN Reason: Pain, severe (8-10) Last Admin: 05/31/18 19:14 Dose: 600 mg Lactulose (Enulose) 20 gm PO DAILY PRN PRN Reason: Constipation Last Admin: 05/31/18 07:51 Dose: 20 gm Levothyroxine Sodium (Synthroid) 150 mcg PO DAILY [facility] Last Admin: 05/31/18 10:03 Dose: Not Given Methylprednisolone (Solu-Medrol) 40 mg IVP Q6 [facility] Last Admin: 05/31/18 21:23 Dose: 40 mg Pantoprazole Sodium (Protonix Ec Tab) 20 mg PO DAILY [facility] Last Admin: 05/31/18 08:45 Dose: 20 mg Promethazine HCl/Codeine (Phenergan/Codeine Oral Syrup) 10 ml PO Q4 [facility] Stop: 06/01/18 20:00 Last Admin: 05/31/18 20:59 Dose: Not Given Tramadol HCl (Ultram) 50 mg PO Q6 PRN PRN Reason: Pain, moderate (4-7) Last Admin: 05/31/18 13:32 Dose: 50 mg - Labs Labs: 05/31/18 05:15 05/31/18 05:15 PT 11.2 Seconds (9.8-13.1) 05/28/18 08:38 INR 1.0 05/28/18 08:38 APTT 36.5 Seconds (25.6-37.1) 05/28/18 08:38 Assessment and Plan (1) COPD exacerbation Status: Acute
[2018-06-01] MEDS: Albuterol-Ipratrop 3 mg / 0.5 (3 ml) UD INH SCH ×7 (00:50→23:47)
[2018-06-01] MEDS: Promethazine/Cod 6.25mg-10mg/5ml Syr UD PO SCH ×4 (01:12→14:47)
[2018-06-01] MEDS: MethylPREDNISolone 40 mg Vial IVP SCH ×3 (04:09→16:16)
[2018-06-01 05:58] LABS: BASO % 0.1 % (0.0-2.0); LYMPH # 0.8 K/uL (1.0-4.3); LYMPH % 4.5 % (20.0-40.0); MEAN CELL VOLUME 100.6 fl (80.0-94.0); MEAN CORPUSCULAR HGB CONC 32.8 g/dL (33.0-37.0); MEAN PLATELET VOLUME 10.3 fl (7.2-11.7); MONO % 5.4 % (0.0-10.0); NEUT # 16.1 K/uL (1.8-7.0); PLATELET COUNT 276 K/uL (130-400); RBC 4.84 Mil/uL (4.40-5.90); RED CELL DISTRIBUTION WIDTH 14.5 % (11.5-14.5); WHITE BLOOD COUNT 17.9 K/uL (4.8-10.8)
[2018-06-01 06:03] LABS: ALB/GLOB RATIO 1.5 (1.0-2.1); ALT/SGPT 39 U/L (21-72); AST/SGOT 31 U/L (17-59); BLOOD UREA NITROGEN 24 mg/dl (9-20); CALCIUM 10.2 mg/dL (8.4-10.2); GFR NON-AFRICAN AMERICAN 58
[2018-06-01 07:53] LABS: LYMPHOCYTE 4 % (20-50); MONOCYTE 6 % (0-10); NEUTROPHIL 90 % (42-75); PLATELET ESTIMATE NORMAL (NORMAL); TOTAL CELLS COUNTED 100
[2018-06-01 07:54] LABS: ANISOCYTOSIS SLIGHT; LARGE PLATELETS PRESENT; OVALOCYTES SLIGHT
[2018-06-01] MEDS: Benzocaine/Menthol (Cepacol) Lozenge PO PRN (08:12)
[2018-06-01] MEDS: guaiFENesin-DM 600-30 mg ER Tab PO SCH ×2 (08:13→16:17)
[2018-06-01] MEDS: Pantoprazole 20 mg EC Tab PO SCH (08:14)
[2018-06-01] MEDS: Enoxaparin 40 mg Syringe SC SCH (08:15)
[2018-06-01] MEDS: FLUTICASONE PROPION/SALMETEROL 113-14 IH SCH ×2 (08:16→20:14)
[2018-06-01] MEDS: Acetylcysteine 20% Inhal Soln (4ml) INH SCH ×2 (08:58→20:25)
[2018-06-01] MEDS: Budesonide 0.5 mg/2 ml Inhal Susp UD IH SCH ×2 (08:59→20:25)
[2018-06-01] MEDS: Levothyroxine 150 MCG TAB PO SCH (09:33)
[2018-06-01] MEDS ORDERED: Promethazine/Cod 6.25mg-10mg/5ml Syr UD PO PRN (15:12)
[2018-06-01] MEDS: Oxycodone/Acetaminophen 5/325 mg Tab PO PRN ×2 (15:47→21:51)
--- NOTE | 2018-06-01 16:09 | CP.PCM.PN ---
Subjective - Date & Time of Evaluation Date of Evaluation: 06/01/18 Time of Evaluation: 12:20 - Subjective Subjective: F/U COPD Exacerbation Cough, chest congestion, mild improvement, no c/o of numbness L arm Objective - Vital Signs/Intake and Output Vital Signs (last 24 hours): Temp Pulse Resp BP Pulse Ox 98.4 F 97 H 20 121/71 93 L 06/01/18 12:00 06/01/18 12:00 06/01/18 12:00 06/01/18 12:00 06/01/18 12:00 - Medications Medications: Current Medications Acetaminophen (Tylenol 325mg Tab) 650 mg PO Q6 PRN PRN Reason: Pain, moderate (4-7) Last Admin: 05/31/18 10:01 Dose: 650 mg Acetylcysteine (Acetylcysteine 20%) 2 ml INH RBID [facility] Last Admin: 06/01/18 08:58 Dose: 2 ml Albuterol/Ipratropium (Duoneb 3 Mg/0.5 Mg (3 Ml) Ud) 3 ml INH RQ4 [facility] Last Admin: 06/01/18 15:06 Dose: Not Given Aspirin (Ecotrin) 81 mg PO DAILY [facility] Last Admin: 06/01/18 08:14 Dose: 81 mg Benzocaine/Menthol (Cepacol Sore Throat) 1 susanne PO Q3 PRN PRN Reason: Sore Throat Last Admin: 06/01/18 08:12 Dose: 1 susanne Budesonide (Pulmicort Respules) 0.5 mg IH RBID [facility] Last Admin: 06/01/18 08:59 Dose: 0.5 mg Enoxaparin Sodium (Lovenox) 40 mg SC DAILY [facility]; Protocol Last Admin: 06/01/18 08:15 Dose: 40 mg Famotidine (Pepcid) 20 mg PO BID [facility] Last Admin: 06/01/18 08:14 Dose: 20 mg Fluticasone Propionate (Flonase) 1 spr EDISON BID [facility] Last Admin: 06/01/18 08:17 Dose: 1 spr Guaifenesin/Dextromethorphan (Mucinex-Dm 600-30 Mg) 2 tab PO BID [facility] Last Admin: 06/01/18 08:13 Dose: 2 tab Home Med (Lamivudine/Zidovudine [Combivir 150 Mg-300 Mg]) 1 puff PO DAILY [facility] Ibuprofen (Motrin Tab) 600 mg PO Q6 PRN PRN Reason: Pain, severe (8-10) Last Admin: 05/31/18 19:14 Dose: 600 mg Lactulose (Enulose) 20 gm PO DAILY PRN PRN Reason: Constipation Last Admin: 06/01/18 04:20 Dose: 20 gm Levothyroxine Sodium (Synthroid) 150 mcg PO DAILY [facility] Last Admin: 06/01/18 09:33 Dose: 150 mcg Methylprednisolone (Solu-Medrol) 40 mg IVP Q8 [facility] Oxycodone/Acetaminophen (Percocet 5/325 Mg Tab) 1 tab PO Q6 PRN PRN Reason: Pain, severe (8-10) Stop: 06/04/18 11:47 Last Admin: 06/01/18 15:47 Dose: 1 tab Pantoprazole Sodium (Protonix Ec Tab) 20 mg PO DAILY [facility] Last Admin: 06/01/18 08:14 Dose: 20 mg Promethazine HCl/Codeine (Phenergan/Codeine Oral Syrup) 10 ml PO Q4 PRN PRN Reason: Cough Stop: 06/01/18 20:00 Tramadol HCl (Ultram) 50 mg PO Q6 PRN PRN Reason: Pain, moderate (4-7) Last Admin: 06/01/18 04:19 Dose: 50 mg - Labs Labs: 06/01/18 04:25 06/01/18 04:25 PT 11.2 Seconds (9.8-13.1) 05/28/18 08:38 INR 1.0 05/28/18 08:38 APTT 36.5 Seconds (25.6-37.1) 05/28/18 08:38 - Constitutional Appears: No Acute Distress - Head Exam Head Exam: NORMAL INSPECTION - Eye Exam Eye Exam: PERRL - ENT Exam ENT Exam: Normal Exam - Neck Exam Neck Exam: Normal Inspection - Respiratory Exam Respiratory Exam: Decreased Breath Sounds (at bases b/l), Rhonchi, Wheezes - Cardiovascular Exam Cardiovascular Exam: REGULAR RHYTHM - GI/Abdominal Exam GI & Abdominal Exam: Soft, Normal Bowel Sounds - Extremities Exam Additional comments: Healed Fx R elbow. L THR - Back Exam Back Exam: NORMAL INSPECTION - Neurological Exam Neurological Exam: Alert, Oriented x3. absent: Motor Sensory Deficit - Skin Skin Exam: Warm Assessment and Plan (1) COPD exacerbation Status: Acute (2) Nasal congestion Status: Acute (3) Lung nodule seen on imaging study Status: Acute - Assessment and Plan (Free Text) Plan: Head CT: No intracranial abnormalities. Continue Solu-Medrol, Pulmicort, Phenergan , Mucinex and rest of Tx.
[2018-06-02] MEDS: MethylPREDNISolone 40 mg Vial IVP SCH ×3 (00:48→16:37)
[2018-06-02] MEDS: Promethazine/Cod 6.25mg-10mg/5ml Syr UD PO SCH ×6 (01:23→21:13)
[2018-06-02] MEDS: Albuterol-Ipratrop 3 mg / 0.5 (3 ml) UD INH SCH ×6 (05:00→23:56)
[2018-06-02] MEDS: Oxycodone/Acetaminophen 5/325 mg Tab PO PRN ×3 (05:51→17:57)
[2018-06-02] MEDS: Acetylcysteine 20% Inhal Soln (4ml) INH SCH ×2 (08:04→19:25)
[2018-06-02] MEDS: FLUTICASONE PROPION/SALMETEROL 113-14 IH SCH ×2 (08:05→21:12)
[2018-06-02] MEDS: guaiFENesin-DM 600-30 mg ER Tab PO SCH ×2 (08:11→16:39)
[2018-06-02] MEDS: Enoxaparin 40 mg Syringe SC SCH (08:11)
[2018-06-02] MEDS: Levothyroxine 150 MCG TAB PO SCH (08:11)
[2018-06-02] MEDS: Pantoprazole 20 mg EC Tab PO SCH (08:11)
[2018-06-02] MEDS: Azithromycin 500 MG in Sodium Chloride 0.9% 250 ML IVPB SCH (12:02)
[2018-06-02] MEDS: Sodium Chloride 0.9% 1,000 ML IV SCH ×2 (12:03→21:13)
--- NOTE | 2018-06-02 15:39 | CP.PCM.PN ---
Subjective - Date & Time of Evaluation Date of Evaluation: 06/02/18 Time of Evaluation: 12:30 - Subjective Subjective: F/U COPD Exacerbation Objective - Vital Signs/Intake and Output Vital Signs (last 24 hours): Temp Pulse Resp BP Pulse Ox 98.1 F 104 H 18 127/84 94 L 06/02/18 11:52 06/02/18 11:52 06/02/18 11:52 06/02/18 11:52 06/02/18 11:52 - Medications Medications: Current Medications Acetaminophen (Tylenol 325mg Tab) 650 mg PO Q6 PRN PRN Reason: Pain, moderate (4-7) Last Admin: 05/31/18 10:01 Dose: 650 mg Acetylcysteine (Acetylcysteine 20%) 2 ml INH RBID [facility] Last Admin: 06/02/18 08:04 Dose: Not Given Albuterol/Ipratropium (Duoneb 3 Mg/0.5 Mg (3 Ml) Ud) 3 ml INH RQ4 [facility] Last Admin: 06/02/18 11:11 Dose: 3 ml Aspirin (Ecotrin) 81 mg PO DAILY [facility] Last Admin: 06/02/18 08:11 Dose: 81 mg Benzocaine/Menthol (Cepacol Sore Throat) 1 susanne PO Q3 PRN PRN Reason: Sore Throat Last Admin: 06/01/18 08:12 Dose: 1 susanne Benzonatate (Tessalon Perles) 200 mg PO Q8 PRN PRN Reason: Cough Budesonide (Pulmicort Respules) 0.5 mg IH RBID [facility] Last Admin: 06/01/18 20:25 Dose: 0.5 mg Enoxaparin Sodium (Lovenox) 40 mg SC DAILY [facility]; Protocol Last Admin: 06/02/18 08:11 Dose: 40 mg Famotidine (Pepcid) 20 mg PO BID [facility] Last Admin: 06/02/18 08:11 Dose: 20 mg Fluticasone Propionate (Flonase) 1 spr EDISON BID [facility] Last Admin: 06/02/18 08:12 Dose: 1 spr Guaifenesin/Dextromethorphan (Mucinex-Dm 600-30 Mg) 2 tab PO BID [facility] Last Admin: 06/02/18 08:11 Dose: 2 tab Home Med (Lamivudine/Zidovudine [Combivir 150 Mg-300 Mg]) 1 puff PO DAILY [facility] Azithromycin 500 mg/ Sodium (Chloride) 250 mls @ 250 mls/hr IVPB DAILY [facility]; Protocol Last Admin: 06/02/18 12:02 Dose: 250 mls/hr Sodium Chloride (Sodium Chloride 0.9%) 1,000 mls @ 100 mls/hr IV .Q10H [facility] Stop: 06/03/18 10:53 Last Admin: 06/02/18 12:03 Dose: 100 mls/hr Ibuprofen (Motrin Tab) 600 mg PO Q6 PRN PRN Reason: Pain, severe (8-10) Last Admin: 05/31/18 19:14 Dose: 600 mg Lactulose (Enulose) 20 gm PO DAILY PRN PRN Reason: Constipation Last Admin: 06/02/18 07:57 Dose: 20 gm Levothyroxine Sodium (Synthroid) 150 mcg PO DAILY [facility] Last Admin: 06/02/18 08:11 Dose: 150 mcg Methylprednisolone (Solu-Medrol) 40 mg IVP Q8 [facility] Last Admin: 06/02/18 08:10 Dose: 40 mg Oxycodone/Acetaminophen (Percocet 5/325 Mg Tab) 1 tab PO Q6 PRN PRN Reason: Pain, severe (8-10) Stop: 06/04/18 11:47 Last Admin: 06/02/18 12:00 Dose: 1 tab Pantoprazole Sodium (Protonix Ec Tab) 20 mg PO DAILY [facility] Last Admin: 06/02/18 08:11 Dose: 20 mg Promethazine HCl/Codeine (Phenergan/Codeine Oral Syrup) 10 ml PO Q4 [facility] Stop: 06/03/18 12:00 Tramadol HCl (Ultram) 50 mg PO Q6 PRN PRN Reason: Pain, moderate (4-7) Last Admin: 06/01/18 04:19 Dose: 50 mg - Labs Labs: 06/01/18 04:25 06/01/18 04:25 PT 11.2 Seconds (9.8-13.1) 05/28/18 08:38 INR 1.0 05/28/18 08:38 APTT 36.5 Seconds (25.6-37.1) 05/28/18 08:38 - Constitutional Appears: No Acute Distress - Head Exam Head Exam: NORMAL INSPECTION - Eye Exam Eye Exam: PERRL - ENT Exam ENT Exam: Mucous Membranes Moist - Neck Exam Neck Exam: Normal Inspection - Respiratory Exam Respiratory Exam: Decreased Breath Sounds (at bases), Rhonchi, Wheezes - Cardiovascular Exam Cardiovascular Exam: REGULAR RHYTHM - GI/Abdominal Exam GI & Abdominal Exam: Soft, Normal Bowel Sounds - Extremities Exam Additional comments: Healed Fx R elbow. L THR - Back Exam Back Exam: NORMAL INSPECTION - Neurological Exam Neurological Exam: Alert, Oriented x3. absent: Motor Sensory Deficit - Psychiatric Exam Additional comments: Calm - Skin Skin Exam: Warm Assessment and Plan (1) COPD exacerbation Status: Acute (2) Nasal congestion Status: Acute (3) Lung nodule seen on imaging study Status: Acute
[2018-06-02 16:09] VITALS: O2SAT 93
[2018-06-02] MEDS: Budesonide 0.5 mg/2 ml Inhal Susp UD IH SCH (19:26)
[2018-06-02 19:50] VITALS: TEMP 97.6
[2018-06-03] MEDS: Promethazine/Cod 6.25mg-10mg/5ml Syr UD PO SCH ×3 (00:05→09:33)
[2018-06-03 00:08] VITALS: RESP 18
[2018-06-03] MEDS: MethylPREDNISolone 40 mg Vial IVP SCH ×2 (00:13→08:39)
[2018-06-03] MEDS: Oxycodone/Acetaminophen 5/325 mg Tab PO PRN ×2 (04:57→11:29)
[2018-06-03] MEDS: Albuterol-Ipratrop 3 mg / 0.5 (3 ml) UD INH SCH ×3 (05:00→11:35)
[2018-06-03 07:46] VITALS: BP 131/80; PULSE 97
[2018-06-03] MEDS: Acetylcysteine 20% Inhal Soln (4ml) INH SCH (07:50)
[2018-06-03] MEDS: Budesonide 0.5 mg/2 ml Inhal Susp UD IH SCH (07:50)
[2018-06-03] MEDS: FLUTICASONE PROPION/SALMETEROL 113-14 IH SCH (08:33)
[2018-06-03] MEDS: Enoxaparin 40 mg Syringe SC SCH (08:35)
[2018-06-03] MEDS: guaiFENesin-DM 600-30 mg ER Tab PO SCH (08:36)
[2018-06-03] MEDS: Pantoprazole 20 mg EC Tab PO SCH (08:38)
[2018-06-03] MEDS: Levothyroxine 150 MCG TAB PO SCH (08:39)
[2018-06-03] MEDS: Azithromycin 500 MG in Sodium Chloride 0.9% 250 ML IVPB SCH (08:41)
[2018-06-03] MEDS: Sodium Chloride 0.9% 1,000 ML IV SCH (09:33)
[2018-06-03] MEDS ORDERED: Pneumococcal 23-Valent Vaccine IM ONE (11:32)
[2018-06-03] MEDS ORDERED: Influenza Vaccine 60 mcg/0.5 mL SYR (4YR UP) IM ONE (11:33)
--- NOTE | 2018-06-03 14:24 | PQF ---
PROVIDER RESPONSE TEXT: Provider was unable to determine a response for this query. REVIEWER QUERY TEXT: Asthma Specificity and Type Physician?s Documentation Request This Form is Not a Permanent Document in the Medical Record Pt Name: NICOLE NELSON MR #: [id number] Payor: MEDICAID HMO Unit/Bed: [id number] Adm Date: 05/30/2018 12:24:00 PM Reviewer: Rosa Crouch Ext. Query Date: 05/31/2018 3:05:20 PM Asthma Specificity and Type [id number] By submitting this query, we are merely seeking further clarification of documentation to accurately reflect all conditions that you are monitoring, evaluating, treating or that extend the hospitalizati on or utilize additional resources of care. Please utilize your independent clinical judgment when ad dressing the question(s) below. Dear Doctor Carlos Santos, The patient?s Clinical Indicators include: -- PMH:Asthma is documented in the Medical Record. Please specify the type and severity of asthma and i ndicate if this is associated with exacerbation or status asthmaticus. Such as: -- Mild intermittent -- Mild persistent -- Moderate persistent -- Severe persistent -- Other, please specify -Unable to determine PLEASE DOCUMENT ANY ADDITIONAL DIAGNOSES AND/OR SPECIFICITY IN THE PROGRESS NOTES AND/OR DISCHARGE [facility]. Clinically unable to determine/unknown Disagree with the above request Need to discuss Query created by: Rosa Crouch on 05/31/2018 3:05 PM Electronically signed by: Carlos Santos 06/03/2018 2:22 PM
--- NOTE | 2018-06-03 14:24 | PQF ---
PROVIDER RESPONSE TEXT: Morbid Obesity - BMI 44.6 REVIEWER QUERY TEXT: Clarification of Clinical Diagnostic Findings Two (2) queries as follows: 1. Agree with the BMI:44.6 as listed in the EMR? 2. If in agreement please include a correlating dx.: i.e. Morbid Obesity etc. -Disagree -Other explanation of clinical finding Listed in the EMR: 5ft 8in 293lb The patient's Clinical Indicators include: -- Query created by: Rosa Crouch on 05/31/2018 3:10 PM Electronically signed by: Carlos Santos 06/03/2018 2:22 PM
--- NOTE | 2018-06-03 14:26 | CP.PCM.DIS ---
Provider - Provider Date of Admission: 05/30/18 12:24 Attending physician: Richy Landers MD Consults: 05/28/18 17:01 Pulmonology Consult Routine Comment: Consulting Provider: Lior Lua Consulting Physician: Lior Lua Reason for Consult: COPD exac Time Spent in preparation of Discharge (in minutes): 30 Diagnosis - Discharge Diagnosis (1) COPD exacerbation Status: Acute Priority: High Hospital Course - Lab Results Lab Results: Micro Results 05/28/18 07:55 Blood-Venous Blood Culture - Final NO GROWTH AFTER 5 DAYS 05/28/18 07:55 Blood-Venous Gram Stain - Final TEST NOT PERFORMED 05/28/18 07:35 Blood-Venous Blood Culture - Final NO GROWTH AFTER 5 DAYS 05/28/18 07:35 Blood-Venous Gram Stain - Final TEST NOT PERFORMED 05/29/18 14:27 Sputum Gram Stain - Final 05/29/18 14:27 Sputum Sputum Culture - Final NORMAL ORAL ALEYDA Most Recent Lab Values WBC 17.9 K/uL (4.8-10.8) H 06/01/18 04:25 RBC 4.84 Mil/uL (4.40-5.90) 06/01/18 04:25 Hgb 16.0 g/dL (12.0-18.0) 06/01/18 04:25 Hct 48.7 % (35.0-51.0) 06/01/18 04:25 MCV 100.6 fl (80.0-94.0) H 06/01/18 04:25 MCH 33.0 pg (27.0-31.0) H 06/01/18 04:25 MCHC 32.8 g/dL (33.0-37.0) L 06/01/18 04:25 RDW 14.5 % (11.5-14.5) 06/01/18 04:25 Plt Count 276 K/uL (130-400) 06/01/18 04:25 MPV 10.3 fl (7.2-11.7) 06/01/18 04:25 Neut % (Auto) 90.0 % (50.0-75.0) H 06/01/18 04:25 Lymph % (Auto) 4.5 % (20.0-40.0) L 06/01/18 04:25 [place] % (Auto) 5.4 % (0.0-10.0) 06/01/18 04:25 Eos % (Auto) 0.0 % (0.0-4.0) 06/01/18 04:25 Baso % (Auto) 0.1 % (0.0-2.0) 06/01/18 04:25 Neut # (Auto) 16.1 K/uL (1.8-7.0) H 06/01/18 04:25 Lymph # (Auto) 0.8 K/uL (1.0-4.3) L 06/01/18 04:25 [place] # (Auto) 1.0 K/uL (0.0-0.8) H 06/01/18 04:25 Eos # (Auto) 0.0 K/uL (0.0-0.7) 06/01/18 04:25 Baso # (Auto) 0.0 K/uL (0.0-0.2) 06/01/18 04:25 Neutrophils % (Manual) 90 % (42-75) H 06/01/18 04:25 Lymphocytes % (Manual) 4 % (20-50) L 06/01/18 04:25 Monocytes % (Manual) 6 % (0-10) 06/01/18 04:25 Platelet Estimate Normal (NORMAL) 06/01/18 04:25 Large Platelets Present 06/01/18 04:25 RBC Morphology Normal (NORMAL) 05/29/18 05:32 Anisocytosis (manual) Slight 06/01/18 04:25 Macrocytosis (manual) Slight 06/01/18 04:25 Ovalocytes Slight 06/01/18 04:25 PT 11.2 Seconds (9.8-13.1) 05/28/18 08:38 INR 1.0 05/28/18 08:38 APTT 36.5 Seconds (25.6-37.1) 05/28/18 08:38 pCO2 37 mm/Hg (35-45) 05/28/18 07:48 pO2 71 mm/Hg (80-100) L 05/28/18 07:48 HCO3 25.2 mmol/L (21-28) 05/28/18 07:48 ABG pH 7.43 (7.35-7.45) 05/28/18 07:48 ABG Total CO2 25.7 mmol/L (22-28) 05/28/18 07:48 ABG O2 Saturation 99.0 % (95-98) H 05/28/18 07:48 ABG Base Excess 0.6 mmol/L (-2.0-3.0) 05/28/18 07:48 Gómez Test Yes 05/28/18 07:48 ABG Potassium 3.1 mmol/L (3.6-5.2) L 05/28/18 07:48 A-a O2 Difference 139.0 mm/Hg 05/28/18 07:48 Sodium 135.0 mmol/L (132-148) 05/28/18 07:48 Chloride 100.0 mmol/L (98-107) 05/28/18 07:48 Glucose 127 mg/dL (75-110) H 05/28/18 07:48 Lactate 1.8 mmol/L (0.7-2.1) 05/28/18 07:48 Vent Mode Nc 05/28/18 07:48 FiO2 36.0 % 05/28/18 07:48 Sodium 136 mmol/l (132-148) 06/01/18 04:25 Potassium 4.5 MMOL/L (3.6-5.0) 06/01/18 04:25 Chloride 99 mmol/L (98-107) 06/01/18 04:25 Carbon Dioxide 30 mmol/L (22-30) 06/01/18 04:25 Anion Gap 12 (10-20) 06/01/18 04:25 BUN 24 mg/dl (9-20) H 06/01/18 04:25 Creatinine 1.3 mg/dl (0.8-1.5) 06/01/18 04:25 Est GFR ( Amer) > 60 06/01/18 04:25 Est GFR (Non-Af Amer) 58 06/01/18 04:25 Random Glucose 177 mg/dL (75-110) H 06/01/18 04:25 Calcium 10.2 mg/dL (8.4-10.2) 06/01/18 04:25 Total Bilirubin 0.3 mg/dl (0.2-1.3) 06/01/18 04:25 AST 31 U/L (17-59) 06/01/18 04:25 ALT 39 U/L (21-72) 06/01/18 04:25 Alkaline Phosphatase 56 U/L (38-126) 06/01/18 04:25 Troponin I 0.0360 ng/mL (0.00-0.120) 05/30/18 11:05 NT-Pro-B Natriuret Pep 574 pg/ml (0-900) 05/28/18 08:04 Total Protein 6.8 G/DL (6.3-8.2) 06/01/18 04:25 Albumin 4.0 g/dL (3.5-5.0) 06/01/18 04:25 Globulin 2.8 gm/dL (2.2-3.9) 06/01/18 04:25 Albumin/Globulin Ratio 1.5 (1.0-2.1) 06/01/18 04:25 Procalcitonin < 0.05 NG/ML (0.19-0.49) L 05/29/18 05:32 Arterial Blood Potassium 3.1 mmol/L (3.6-5.2) L 05/28/18 07:48 Influenza Typ A,B (EIA) Negative for flu a/b (NEGATIVE) 05/28/18 08:04 - Hospital Course Hospital Course: 53 y/o male with a PMH of Asthma and COPD presented to the ED with worsening dyspnea and chest pain. He had been experiencing an increasing cough with yellow/green sputum in the week up to arrival, as well as flu-like symptoms. Flu swab and CXR was done, both resulted as negative. Procalcitonin and troponins negative. Patient was treated with IV steroids and duonebs. Due to patients continued symptoms, CT chest was obtained, bronchitis revealed with stable pulmonary nodule. No other abnormalities. Patient improved with course of azithromycin. Patient was discharged in stable condition and to follow up as outpatient in 1 week. Discharge Exam - Head Exam Head Exam: NORMAL INSPECTION - Eye Exam Eye Exam: Normal appearance - Respiratory Exam Respiratory Exam: NORMAL BREATHING PATTERN - Cardiovascular Exam Cardiovascular Exam: +S1, +S2 - GI/Abdominal Exam GI & Abdominal Exam: Soft - Neurological Exam Neurological exam: Alert, Oriented x3 - Psychiatric Exam Psychiatric exam: Normal Affect, Normal Mood - Skin Skin Exam: Normal Color, Warm Discharge Plan - Discharge Medications Prescriptions: Azithromycin [Zithromax Tri-Mat] 500 mg PO DAILY #5 tablet Fluticasone Propion/Salmeterol [Airduo Resp. Fluticasone-Salmeterol 113-14] 1 puff IH BID #60 aer.pow.ba Nicotine 21 mg/24 hr [Nicoderm Cq] 21 mg TD DAILY #30 patch predniSONE [Prednisone] 10 mg PO DAILY #18 tab Promethazine [Phenergan Syrup] 6.25 mg PO DAILY #1 bottle - Follow Up Plan Condition: STABLE Disposition: HOME/ ROUTINE Instructions: Exacerbation of COPD (DC) Additional Instructions: follow up with primary doctor in 1 week Referrals: Richy Landers MD [Staff Provider] - Carlos Santos MD [Medical Doctor] - Lior Lua MD [Staff Provider] -
--- NOTE | 2018-06-03 14:26 | CP.PCM.PN ---
Subjective - Date & Time of Evaluation Date of Evaluation: 06/02/18 Time of Evaluation: 11:00 - Subjective Subjective: patient seen and examined at bedside. Interim events noted complains of continued cough and sob. denies cp/fever/chills. available diagnostic data reviewed Review of Systems All systems: reviewed and no additional remarkable complaints except mentioned above Objective Vital Signs Stable - Constitutional Appears: Non-toxic, No Acute Distress Head Exam: NORMAL INSPECTION Eye Exam: Normal appearance Respiratory Exam: NORMAL BREATHING PATTERN, wheezing bilaterally though improved Cardiovascular Exam: +S1, +S2 GI & Abdominal Exam: Soft Neurological Exam: Alert, Awake Psychiatric exam: Normal Affect, Normal Mood Skin Exam: Normal Color, Warm Assessment and Plan monitor vitals monitor labs Cont meds Cont tx consultants appreciated input c/w steroids rest of plan as ordered Objective - Vital Signs/Intake and Output Vital Signs (last 24 hours): Temp Pulse Resp BP Pulse Ox 97.6 F 97 H 18 131/80 93 L 06/03/18 07:46 06/03/18 07:46 06/03/18 07:46 06/03/18 07:46 06/03/18 07:46 - Labs Labs: 06/01/18 04:25 06/01/18 04:25 PT 11.2 Seconds (9.8-13.1) 05/28/18 08:38 INR 1.0 05/28/18 08:38 APTT 36.5 Seconds (25.6-37.1) 05/28/18 08:38 Assessment and Plan (1) COPD exacerbation Status: Acute
--- NOTE | 2018-06-03 23:29 | CP.PCM.PN ---
Subjective - Date & Time of Evaluation Date of Evaluation: 06/01/18 Time of Evaluation: 09:00 - Subjective Subjective: Pt seen and assessed at bedside. Reports improvement in symptoms, however one episode of dyspnea occurred while walking to the shower this morning. Subjective Review of Systems: Reviewed and no additional remarkable complaints except occasional dyspnea and headache. Objective Appears: Anxious, Non-toxic, No Acute Distress. Head Exam: NORMAL INSPECTION, normocephalic. Eye Exam: Normal eye inspection, EOMI, PERRLA. Respiratory Exam: Normal breathing pattern, wheezing and rhonchi noted throughout. Cardiovascular Exam: +S1, +S2. RRR. GI & Abdominal Exam: Round, soft, non-tender. Neurological Exam: Alert, Awake, Oriented x3. Psychiatric exam: Normal mood. Calm and cooperative. Skin exam: Normal color, warm, dry. Assessment/Impression/Plan: 1.) COPD Exacerbation -Continue IV steroids for now; consider switching to PO soon in anticipation of discharge. -consults input appreciated. -duonebs for SOB episodes. -continue current treatment. -for possible discharge if symptoms improve even more. Objective - Vital Signs/Intake and Output Vital Signs (last 24 hours): Temp Pulse Resp BP Pulse Ox 97.6 F 97 H 18 131/80 93 L 06/03/18 07:46 06/03/18 07:46 06/03/18 07:46 06/03/18 07:46 06/03/18 07:46 - Labs Labs: 06/01/18 04:25 06/01/18 04:25 PT 11.2 Seconds (9.8-13.1) 05/28/18 08:38 INR 1.0 05/28/18 08:38 APTT 36.5 Seconds (25.6-37.1) 05/28/18 08:38 Assessment and Plan (1) COPD exacerbation Status: Acute
== END 2018-06-03 12:36 | disposition home or self-care (01) | DRG 88 ==
LOC: H.ER 07:12 → H.ERHOLD 11:52 → H.TEL 14:48 → OBSVTOIN 05-30 12:24
PROVIDERS: ADMIT Family Medicine; ATTEND Family Medicine
DX: J44.1 Chronic obstructive pulmonary disease with (acute) exacerbation (principal); E87.6 Hypokalemia; G35 Multiple sclerosis; I50.9 Heart failure, unspecified; I11.0 Hypertensive heart disease with heart failure; F20.9 Schizophrenia, unspecified; M06.9 Rheumatoid arthritis, unspecified; E66.01 Morbid (severe) obesity due to excess calories; Z68.42 Body mass index [BMI] 45.0-49.9, adult; E78.00 Pure hypercholesterolemia, unspecified; E03.9 Hypothyroidism, unspecified; G47.30 Sleep apnea, unspecified; I48.91 Unspecified atrial fibrillation; I25.10 Atherosclerotic heart disease of native coronary artery without angina pectoris; R09.81 Nasal congestion; R91.1 Solitary pulmonary nodule; Z79.82 Long term (current) use of aspirin; Z87.01 Personal history of pneumonia (recurrent); Z87.891 Personal history of nicotine dependence; Z95.0 Presence of cardiac pacemaker; Z96.642 Presence of left artificial hip joint; M81.0 Age-related osteoporosis without current pathological fracture; G20 Parkinson's disease; F43.10 Post-traumatic stress disorder, unspecified; K50.90 Crohn's disease, unspecified, without complications; F31.9 Bipolar disorder, unspecified

== ENCOUNTER 2018-06-07 10:53 | Emergency (ER) | payer MEDICAID ==
[2018-06-07 11:02] VITALS: BMI 43.7
[2018-06-07] MEDS ORDERED: Albuterol-Ipratrop 3 mg / 0.5 (3 ml) UD IH STA (11:29)
[2018-06-07] MEDS ORDERED: Albuterol-Ipratrop 3 mg / 0.5 (3 ml) UD ONE (11:35)
--- NOTE | 2018-06-07 12:25 | ED PDOC ---
Upper Extremity Pain/Injury Time Seen by Provider: 06/07/18 11:16 Chief Complaint (Nursing): Upper Extremity Problem/Injury Chief Complaint (Provider): Left shoulder pain History Per: Patient History/Exam Limitations: no limitations Onset/Duration Of Symptoms: Sudden Onset Current Symptoms Are (Timing): Still Present Quality: "Pain" Exacerbating Factor(s): Movement Additional Complaint(s): 53 year old male presents to the ED after he injured his left shoulder this morning after falling against the wall. Patient reports the pain worsens when raising his arm. Also reports he has COPD and requests for a nebulizer in the ED. Otherwise, he denies head/neck injury, cough, shortness of breath, chest pain or any other complaints. PMD: Shweta Chan Past Medical History Reviewed: Historical Data, Nursing Documentation, Vital Signs Vital Signs: Last Vital Signs Temp 98.2 F 06/07/18 11:00 Pulse 118 H 06/07/18 11:00 Resp 19 06/07/18 11:00 BP 115/68 06/07/18 11:00 Pulse Ox 95 06/07/18 11:00 - Medical History PMH: Anxiety (As per MD report), Asthma, Atrial Fibrillation, COPD, Depression, Fractures (right elbow), HTN, Hypercholesterolemia, Hyperthyroidism, Hypothyroidism, Paranoia (As per MD report), Pneumonia (08/18/13 as per MD report), Sleep Apnea Denies: Alzheimer's Disease, Anemia, CAD, HIV, Chronic Kidney Disease Comment Only: Bipolar Disorder (As per MD report), Cardia Arrhythmia (As per MD report), CHF (As per MD report), Crohn's Disease (As per MD report), Diverticulitis (As per MD report), Multiple Sclerosis (As per MD report), Osteo porosis (As per MD report), Pancreatitis (As per MD report), Parkinson's Disease (As per MD report), Post Traumatic Stress Disorder (As per MD report), Rheumatoid Arthritis (As per MD report), Schizophrenia (As per MD report), Sexually Transmitted Disease (As per MD report) - Surgical History Surgical History: Pacemaker (As per MD report) - Family History Family History: States: Unknown Family Hx - Immunization History Hx Tetanus Toxoid Vaccination: No Hx Influenza Vaccination: No Hx Pneumococcal Vaccination: No - Home Medications Home Medications: Ambulatory Orders Medication Instructions Recorded Aspirin [Ecotrin] 81 mg PO DAILY 05/28/18 Levothyroxine [Synthroid] 150 mg PO DAILY 05/28/18 Pantoprazole Sodium [Protonix] 20 mg PO DAILY 05/28/18 lamiVUDine/Zidovudine [Combivir 1 puff PO DAILY 05/28/18 150 MG-300 MG] Azithromycin [Zithromax Tri-Mat] 500 mg PO DAILY #5 tablet 06/03/18 Fluticasone Propion/Salmeterol 1 puff IH BID #60 aer.pow.ba 06/03/18 [Airduo Resp. Fluticasone-Salmeterol 113-14] Nicotine 21 mg/24 hr [Nicoderm Cq] 21 mg TD DAILY #30 patch 06/03/18 Promethazine [Phenergan Syrup] 6.25 mg PO DAILY #1 bottle 06/03/18 oxyCODONE/Acetaminophen [Percocet 1 tab PO Q6 PRN tab 06/03/18 5/325 mg Tab] predniSONE [Prednisone] 10 mg PO DAILY #18 tab 06/03/18 Albuterol 0.083% [Albuterol 3 ml IH Q8 #1 neb 06/07/18 Sulfate 3 Ml] Naproxen [Naprosyn] 500 mg PO Q12H #20 tab 06/07/18 Non-Formulary 1 ea .ROUTE Q6 #1 ea 06/07/18 traMADol [Ultram] 50 mg PO Q8 #10 tab 06/07/18 - Allergies Allergies/Adverse Reactions: Allergies Allergy/AdvReac Type Severity Reaction Status Date / Time No Known Allergies Allergy Verified 05/28/18 07:25 Review of Systems ROS Statement: Except As Marked, All Systems Reviewed And Found Negative Respiratory: Negative for: Cough, Shortness of Breath Musculoskeletal: Positive for: Shoulder Pain (left ). Negative for: Neck Pain Neurological: Negative for: Weakness, Numbness Physical Exam - Reviewed Nursing Documentation Reviewed: Yes Vital Signs Reviewed: Yes - Physical Exam Cardiovascular/Chest: Positive for: Regular Rate, Rhythm. Negative for: Murmur Respiratory: Positive for: Normal Breath Sounds. Negative for: Decreased Breath Sounds, Accessory Muscle Use, Rales, Wheezing, Respiratory Distress Extremity: Positive for: Tenderness (anterior and posterior aspect of left shoulder ), Other (pain worsens when raising left arm above the head ). Negative for: Normal ROM (painful ROM ), Deformity Neurological/Psych: Positive for: Awake, Alert, Normal Tone, Oriented (x3). Negative for: Motor/Sensory Deficits - ECG O2 Sat by Pulse Oximetry: 95 (RA) Pulse Ox Interpretation: Normal Medical Decision Making Medical Decision Making: Time: 11:29 Assessment: 53 year old male with mild COPD will be treated with nebulizer. As for left shoulder injury, will obtain x-ray to r/o fracture vs dislocation. Plan: Albuterol 3ml Toradol 30mg Left shoulder [RAD] Peak flow pre/post tx Reevaluation Scribe Attestation: Documented by Christianne Velasco, acting as a scribe for Cesar Robledo MD. Provider Scribe Attestation: All medical record entries made by the Scribe were at my direction and personally dictated by me. I have reviewed the chart and agree that the record accurately reflects my personal performance of the history, physical exam, medical decision making, and the department course for this patient. I have also personally directed, reviewed, and agree with the discharge instructions and disposition. Disposition - Clinical Impression Clinical Impression: COPD (chronic obstructive pulmonary disease), Shoulder sprain - Disposition Referrals: Gamal Holguin III, MD [Staff Provider] - Disposition: Routine/Home Disposition Time: 12:38 Condition: FAIR Prescriptions: Albuterol 0.083% [Albuterol Sulfate 3 Ml] 3 ml IH Q8 #1 neb Naproxen [Naprosyn] 500 mg PO Q12H #20 tab Non-Formulary 1 ea .ROUTE Q6 #1 ea traMADol [Ultram] 50 mg PO Q8 #10 tab Instructions: Shoulder Sprain, Chronic Obstructive Pulmonary Disease (COPD), Including Emphysema Forms: [employer] (Bulgarian), [facility] ED School/Work Excuse
[2018-06-07 12:52] VITALS: BP 120/72; PULSE 90; RESP 16; TEMP 98; O2SAT 99
--- NOTE | 2018-06-07 13:16 | RAD ---
Date of service: 06/07/2018 PROCEDURE: Radiographs of the Left Shoulder, two views HISTORY: trauma COMPARISON: No prior. TECHNIQUE: 3 views obtained. FINDINGS: BONES: Normal. No fracture. JOINTS: Normal. Glenohumeral and acromioclavicular joints preserved. No osteoarthritis. SOFT TISSUES: Normal. OTHER FINDINGS: None. IMPRESSION: Normal radiographs of the left shoulder.
== END 2018-06-07 12:52 | disposition home or self-care (01) ==
LOC: H.ER 10:53
DX: J44.9 Chronic obstructive pulmonary disease, unspecified (principal); S43.402A Unspecified sprain of left shoulder joint, initial encounter; K50.90 Crohn's disease, unspecified, without complications; M06.9 Rheumatoid arthritis, unspecified; Z79.82 Long term (current) use of aspirin; Z79.899 Other long term (current) drug therapy; Z95.0 Presence of cardiac pacemaker; G35 Multiple sclerosis; F43.10 Post-traumatic stress disorder, unspecified; Z86.59 Personal history of other mental and behavioral disorders; G20 Parkinson's disease; I11.0 Hypertensive heart disease with heart failure
CPT/HCPCS: 73030; 94640; 96372; 99284; J1885

== ENCOUNTER 2018-06-10 01:35 | Emergency (ER) | payer MEDICAID ==
[2018-06-10 01:35] VITALS: BMI 43.7
[2018-06-10] MEDS ORDERED: DiphenhydrAMINE 50 mg/ml Inj IVP STA (02:09)
--- NOTE | 2018-06-10 02:44 | ED PDOC ---
HPI: SOB/CHF/COPD Time Seen by Provider: 06/10/18 01:45 Chief Complaint (Nursing): Shortness Of Breath Chief Complaint (Provider): Shortness Of Breath History Per: Patient History/Exam Limitations: no limitations Onset/Duration Of Symptoms: Hrs (x2) Additional Complaint(s): 53 y/o male with history of COPD and asthma states that 2 hours prior to arrival he noticed his body was swelling up. He states that swelling started in his arms and progressed to his face as well his chests. He additionally reports that he started to feel chest pain across his chest bilaterally as well as shortness of breath. Patient believes he might be reacting to the new medication prescribed by Anshul; he states it might be one of the pumps but he has not yet taken the Azithromycin or the Prednisone. Denies rash or fever. Past Medical History Reviewed: Historical Data, Nursing Documentation, Vital Signs Vital Signs: Last Vital Signs Temp 98.6 F 06/10/18 01:45 Pulse 114 H 06/10/18 01:45 Resp 17 06/10/18 01:56 BP 126/77 06/10/18 01:45 Pulse Ox 97 06/10/18 01:56 Primary Care Physician: Richy Landers MD - Medical History PMH: Anxiety (As per MD report), Asthma, Atrial Fibrillation, COPD, Depression, Fractures (right elbow), HTN, Hypercholesterolemia, Hyperthyroidism, Hypothyroidism, Paranoia (As per MD report), Pneumonia (08/18/13 as per MD report), Sleep Apnea Denies: Alzheimer's Disease, Anemia, CAD, HIV, Chronic Kidney Disease Comment Only: Bipolar Disorder (As per MD report), Cardia Arrhythmia (As per MD report), CHF (As per MD report), Crohn's Disease (As per MD report), Diverticulitis (As per MD report), Multiple Sclerosis (As per MD report), Osteoporosis (As per MD report), Pancreatitis (As per MD report), Parkinson's Disease (As per MD report), Post Traumatic Stress Disorder (As per MD report), R heumatoid Arthritis (As per MD report), Schizophrenia (As per MD report), Sexually Transmitted Disease (As per MD report) - Surgical History Surgical History: Pacemaker (As per MD report) - Family History Family History: States: Unknown Family Hx - Immunization History Hx Tetanus Toxoid Vaccination: No Hx Influenza Vaccination: No Hx Pneumococcal Vaccination: No - Home Medications Home Medications: Ambulatory Orders Medication Instructions Recorded Aspirin [Ecotrin] 81 mg PO DAILY 05/28/18 Levothyroxine [Synthroid] 150 mg PO DAILY 05/28/18 Pantoprazole Sodium [Protonix] 20 mg PO DAILY 05/28/18 lamiVUDine/Zidovudine [Combivir 1 puff PO DAILY 05/28/18 150 MG-300 MG] Azithromycin [Zithromax Tri-Mat] 500 mg PO DAILY #5 tablet 06/03/18 Fluticasone Propion/Salmeterol 1 puff IH BID #60 aer.pow.ba 06/03/18 [Airduo Resp. Fluticasone-Salmeterol 113-14] Nicotine 21 mg/24 hr [Nicoderm Cq] 21 mg TD DAILY #30 patch 06/03/18 Promethazine [Phenergan Syrup] 6.25 mg PO DAILY #1 bottle 06/03/18 oxyCODONE/Acetaminophen [Percocet 1 tab PO Q6 PRN tab 06/03/18 5/325 mg Tab] predniSONE [Prednisone] 10 mg PO DAILY #18 tab 06/03/18 Albuterol 0.083% [Albuterol 3 ml IH Q8 #1 neb 06/07/18 Sulfate 3 Ml] Naproxen [Naprosyn] 500 mg PO Q12H #20 tab 06/07/18 Non-Formulary 1 ea .ROUTE Q6 #1 ea 06/07/18 traMADol [Ultram] 50 mg PO Q8 #10 tab 06/07/18 - Allergies Allergies/Adverse Reactions: Allergies Allergy/AdvReac Type Severity Reaction Status Date / Time No Known Allergies Allergy Verified 05/28/18 07:25 Review of Systems ROS Statement: Except As Marked, All Systems Reviewed And Found Negative Constitutional: Negative for: Fever Cardiovascular: Positive for: Chest Pain, Edema (arms, legs, face) Respiratory: Positive for: Shortness of Breath Skin: Negative for: Rash Physical Exam - Reviewed Nursing Documentation Reviewed: Yes Vital Signs Reviewed: Yes - Physical Exam Appears: Positive for: No Acute Distress (morbidly obese) Head Exam: Positive for: ATRAUMATIC, NORMAL INSPECTION (face appears normal in size), NORMOCEPHALIC Skin: Positive for: Normal Color, Warm, DRY ENT: Positive for: Normal ENT Inspection, Other (ENT exam shows no soft tissue swelling) Neck: Positive for: Normal, Painless ROM Cardiovascular/Chest: Positive for: Regular Rate, Rhythm, Tachycardia. Negative for: Murmur Respiratory: Positive for: Normal Breath Sounds. Negative for: Respiratory Di stress Gastrointestinal/Abdominal: Positive for: Normal Exam, Soft. Negative for: Tenderness Back: Positive for: Normal Inspection Extremity: Positive for: Pedal Edema (1+ pitting edema in legs bilatearlly up to knee). Negative for: Swelling (no significant edema of upper extremities noted) Neurological/Psych: Positive for: Awake, Alert, Normal Tone. Negative for: Motor/Sensory Deficits - Laboratory Results Result Diagrams: 06/10/18 02:40 06/10/18 02:40 - ECG O2 Sat by Pulse Oximetry: 97 (RA) Pulse Ox Interpretation: Normal Medical Decision Making Medical Decision Making: Time: 02:08 A/P: Nonspecific atypical chest pain and SOB. Possible allergy. Will check BNP to r/o fluid overload along with CXR. Will treat symptomatically with Solumedrol and Benadryl. Will monitor patient * VBG * EKG * BNP * BMP * Drug Screen * Troponin * CBC w/ diff * CXR * Benadryl 25 mg * Solumedrol 125 mg 700 -troponin x 2 negative --case discussed with Dr Landers, states patient can follwoup as outpatient --Admission offered to patient, states he prefers to followup as outpatient --Well appearing upon discharge Scribe Attestation: Documented by Terry Foote, acting as a scribe Howard Luevano MD Provider Scribe Attestation: All medical record entries made by the Scribe were at my direction and personally dictated by me. I have reviewed the chart and agree that the record accurately reflects my personal performance of the history, physical exam, medical decision making, and the department course for this patient. I have also personally directed, reviewed, and agree with the discharge instructions and disposition Disposition - Clinical Impression Clinical Impression: Atypical chest pain - Patient ED Disposition Is Patient to be Admitted: No Counseled Patient/Family Regarding: Studies Performed, Diagnosis, Need For Followup - Disposition Referrals: Richy Landers MD [Primary Care Provider] - Disposition: Routine/Home Disposition Time: 07:09 Condition: IMPROVED Instructions: Chest Pain That Is Not Caused by the Heart (DC), Adverse Drug Reactions, Adult Forms: [employer] (Belizean)
[2018-06-10] MEDS ORDERED: DiphenhydrAMINE 50 mg/ml Inj ONE (02:46)
[2018-06-10 02:55] LABS: BASO # 0.1 K/uL (0.0-0.2); BASO % 0.4 % (0.0-2.0); EOS # 0.1 K/uL (0.0-0.7); EOS % 0.8 % (0.0-4.0); HEMOGLOBIN 14.3 g/dL (12.0-18.0); LYMPH # 3.4 K/uL (1.0-4.3); LYMPH % 26.2 % (20.0-40.0); MEAN CORPUSCULAR HEMOGLOBIN 33.1 pg (27.0-31.0); MEAN CORPUSCULAR HGB CONC 33.1 g/dL (33.0-37.0); MEAN PLATELET VOLUME 9.6 fl (7.2-11.7); MONO % 8.1 % (0.0-10.0); NEUT # 8.2 K/uL (1.8-7.0); NEUT % 64.5 % (50.0-75.0); NRBC % 0.2 % (0.0-0.0); RBC 4.32 Mil/uL (4.40-5.90); WHITE BLOOD COUNT 12.8 K/uL (4.8-10.8)
[2018-06-10 03:04] LABS: VENOUS BLOOD GAS BASE EXCESS -0.7 mmol/L (0.0-2.0); VENOUS BLOOD GAS PCO2 49 mmHg (40-60); VENOUS BLOOD GAS PO2 32 mm/Hg (30-55); VENOUS BLOOD PH 7.33 (7.32-7.43)
[2018-06-10 03:19] LABS: OPIATES, UR NEGATIVE (NEGATIVE)
[2018-06-10 03:20] LABS: BARBITURATES, UR NEGATIVE (NEGATIVE); BENZODIAZEPINES, UR NEGATIVE (NEGATIVE); BLOOD UREA NITROGEN 19 mg/dl (9-20); CALCIUM 8.7 mg/dL (8.4-10.2); GFR NON-AFRICAN AMERICAN > 60; PHENCYCLIDINE, UR NEGATIVE (NEGATIVE)
[2018-06-10 03:28] LABS: B-TYPE NATRIURETIC PEPTIDE 749 pg/ml (0-900)
[2018-06-10 06:17] VITALS: BP 135/87; PULSE 91; RESP 17; TEMP 98
[2018-06-10 07:09] VITALS: O2SAT 97
--- NOTE | 2018-06-10 08:00 | RAD ---
Date of service: 06/10/2018 HISTORY: sob COMPARISON: Frontal chest radiograph 05/28/2018. TECHNIQUE: 1 view obtained. FINDINGS: LUNGS: No active pulmonary disease. PLEURA: No significant pleural effusion identified, no pneumothorax apparent. CARDIOVASCULAR: No aortic atherosclerotic calcification present. Normal cardiac size. No pulmonary vascular congestion. OSSEOUS STRUCTURES: No significant abnormalities. VISUALIZED UPPER ABDOMEN: Normal. OTHER FINDINGS: None. IMPRESSION: No interval acute cardiopulmonary disease appreciated.
--- NOTE | 2018-06-10 09:37 | CARD ---
APPROVED REPORT Date of service: 06/10/2018 EKG Measurement Heart [id number] <Conclusion> Sinus tachycardia with premature atrial complexes with aberrant conduction Minimal voltage criteria for LVH, may be normal variant Septal infarct, age undetermined ST & T wave abnormality, consider inferolateral ischemia Abnormal ECG
== END 2018-06-10 07:09 | disposition home or self-care (01) ==
LOC: H.ER 01:35
DX: R07.89 Other chest pain (principal); E03.9 Hypothyroidism, unspecified; E05.90 Thyrotoxicosis, unspecified without thyrotoxic crisis or storm; E78.00 Pure hypercholesterolemia, unspecified; F31.9 Bipolar disorder, unspecified; F43.10 Post-traumatic stress disorder, unspecified; G20 Parkinson's disease; G35 Multiple sclerosis; I11.0 Hypertensive heart disease with heart failure; K50.90 Crohn's disease, unspecified, without complications; Z95.0 Presence of cardiac pacemaker
CPT/HCPCS: 71045; 80048; 80324; 80345; 80346; 80349; 80353; 80358; 80361; 82803; 83880; 83992; 84484; 85025; 93005; 96374; 96375; 99284; J1200; J1885; J2930

== ENCOUNTER 2018-06-18 23:47 | Observation (INO) | payer MEDICAID ==
[2018-06-18 23:47] VITALS: BMI 43.7
[2018-06-19] MEDS ORDERED: Magnesium Sulfate 2 gm/50 ml 2 GM/50 ML BAG IV STA (00:22)
[2018-06-19] MEDS ORDERED: Albuterol-Ipratrop 3 mg / 0.5 (3 ml) UD INH STA (00:22)
[2018-06-19] MEDS ORDERED: Magnesium Sulfate 2 gm/50 ml 2 GM/50 ML BAG ONE (00:27)
[2018-06-19] MEDS ORDERED: Albuterol-Ipratrop 3 mg / 0.5 (3 ml) UD ONE (00:47)
[2018-06-19 00:55] LABS: BASO # 0.1 K/uL (0.0-0.2); BASO % 0.8 % (0.0-2.0); EOS # 0.2 K/uL (0.0-0.7); EOS % 2.1 % (0.0-4.0); HEMOGLOBIN 13.4 g/dL (12.0-18.0); LYMPH # 2.5 K/uL (1.0-4.3); LYMPH % 32.1 % (20.0-40.0); MEAN CORPUSCULAR HEMOGLOBIN 33.5 pg (27.0-31.0); MEAN CORPUSCULAR HGB CONC 33.5 g/dL (33.0-37.0); MEAN PLATELET VOLUME 9.4 fl (7.2-11.7); MONO # 0.6 K/uL (0.0-0.8); MONO % 7.1 % (0.0-10.0); NEUT # 4.5 K/uL (1.8-7.0); NEUT % 57.9 % (50.0-75.0); NRBC % 0.1 % (0.0-0.0); WHITE BLOOD COUNT 7.8 K/uL (4.8-10.8)
[2018-06-19 01:16] LABS: ALB/GLOB RATIO 1.4 (1.0-2.1); ALBUMIN 3.8 g/dL (3.5-5.0); ALT/SGPT 48 U/L (21-72); AST/SGOT 48 U/L (17-59); BLOOD UREA NITROGEN 21 mg/dl (9-20); CALCIUM 9.2 mg/dL (8.4-10.2); GFR NON-AFRICAN AMERICAN > 60
[2018-06-19 01:20] LABS: B-TYPE NATRIURETIC PEPTIDE 656 pg/ml (0-900)
--- NOTE | 2018-06-19 02:10 | ED PDOC ---
HPI: Chest Pain Time Seen by Provider: 06/18/18 23:56 Chief Complaint (Nursing): Chest Pain Chief Complaint (Provider): Chest Pain History Per: Patient History/Exam Limitations: no limitations Onset/Duration Of Symptoms: Hrs Current Symptoms Are (Timing): Still Present Additional Complaint(s): 53 year old male with pmhx of COPD, HTN and asthma presents to the ED for an evaluation of shortness of breath and chest pain onset one hour ago. Patient reports of left-sided pain, shortness of breath, wheezing and sore throat. He took Aluterol without any relief. Otherwise, he denies any other medical complaints. PMD: Richy Landers Past Medical History Reviewed: Historical Data, Nursing Documentation, Vital Signs Vital Signs: Last Vital Signs Temp 98.2 F 06/18/18 23:55 Pulse 99 H 06/18/18 23:55 Resp 16 06/18/18 23:55 BP 112/79 06/18/18 23:55 Pulse Ox 97 06/18/18 23:55 Primary Care Provider: Richy Landers - Medical History PMH: Anxiety (As per MD report), Asthma, Atrial Fibrillation, COPD, Depression, Fractures (right elbow), HTN, Hypercholesterolemia, Hyperthyroidism, Hypothyroidism, Paranoia (As per MD report), Pneumonia (08/18/13 as per MD report), Sleep Apnea Denies: Alzheimer's Disease, Anemia, CAD, HIV, Chronic Kidney Disease Comment Only: Bipolar Disorder (As per MD report), Cardia Arrhythmia (As per MD report), CHF (As per MD report), Crohn's Disease (As per MD report), Diverticulitis (As per MD report), Multiple Sclerosis (As per MD report), Oste oporosis (As per MD report), Pancreatitis (As per MD report), Parkinson's Disease (As per MD report), Post Traumatic Stress Disorder (As per MD report), Rheumatoid Arthritis (As per MD report), Schizophrenia (As per MD report), Sexually Transmitted Disease (As per MD report) - Surgical History Surgical History: Pacemaker (As per MD report) - Family History Family History: States: Unknown Family Hx - Immunization History Hx Tetanus Toxoid Vaccination: No Hx Influenza Vaccination: No Hx Pneumococcal Vaccination: No - Home Medications Home Medications: Ambulatory Orders Medication Instructions Recorded Aspirin [Ecotrin] 81 mg PO DAILY 05/28/18 Levothyroxine [Synthroid] 150 mg PO DAILY 05/28/18 Pantoprazole Sodium [Protonix] 20 mg PO DAILY 05/28/18 Azithromycin [Zithromax Tri-Mat] 500 mg PO DAILY #5 tablet 06/03/18 predniSONE [Prednisone] 10 mg PO DAILY #18 tab 06/03/18 Albuterol 0.083% [Albuterol 3 ml IH Q8 #1 neb 06/07/18 Sulfate 3 Ml] Naproxen [Naprosyn] 500 mg PO Q12H #20 tab 06/07/18 traMADol [Ultram] 50 mg PO Q8 #10 tab 06/07/18 Cyclobenzaprine HCl 10 mg PO TID 06/19/18 Fluticasone/Umeclidin/Vilanter 1 each IH DAILY 06/19/18 [Trelegy Ellipta 100-62.5-25] Furosemide [Lasix] 40 mg PO DAILY 06/19/18 - Allergies Allergies/Adverse Reactions: Allergies Allergy/AdvReac Type Severity Reaction Status Date / Time No Known Allergies Allergy Verified 06/18/18 23:55 Review of Systems ROS Statement: Except As Marked, All Systems Reviewed And Found Negative ENT: Positive for: Throat Pain Cardiovascular: Positive for: Chest Pain Respiratory: Positive for: Shortness of Breath, Wheezing. Negative for: Cough Gastrointestinal: Negative for: Nausea, Vomiting, Abdominal Pain, Diarrhea Physical Exam - Reviewed Nursing Documentation Reviewed: Yes Vital Signs Reviewed: Yes - Physical Exam Appears: Negative for: Well (obese ) Head Exam: Positive for: ATRAUMATIC, NORMAL INSPECTION, NORMOCEPHALIC Skin: Positive for: Normal Color, Warm, Dry. Negative for: Rash Eye Exam: Positive for: EOMI, Normal appearance, PERRL ENT: Positive for: Normal ENT Inspection Neck: Positive for: Normal, Painless ROM, Supple. Negative for: Decreased ROM Cardiovascular/Chest: Positive for: Regular Rate, Rhythm. Negative for: Murmur Respiratory: Positive for: Decreased Breath Sounds, Wheezing (bilateral expiratory wheezing), Respiratory Distress (mild ) Gastrointestinal/Abdominal: Positive for: Normal Exam, Soft. Negative for: Tenderness Back: Positive for: Normal Inspection Extremity: Positive for: Normal ROM. Negative for: Tenderness, Pedal Edema, Deformity Neurological/Psych: Positive for: Awake, Alert, Normal Tone, Oriented (x3). Negative for: Facial Droop - Laboratory Results Result Diagrams: 06/19/18 00:43 06/19/18 00:43 Lab Results: Troponin I 0.0660 ng/mL (0.00-0.120) 06/19/18 00:43 NT-Pro-B Natriuret Pep 656 pg/ml (0-900) 06/19/18 00:43 Total Bilirubin 0.5 mg/dl (0.2-1.3) 06/19/18 00:43 AST 48 U/L (17-59) 06/19/18 00:43 ALT 48 U/L (21-72) 06/19/18 00:43 Alkaline Phosphatase 47 U/L (38-126) 06/19/18 00:43 Total Protein 6.5 G/DL (6.3-8.2) 06/19/18 00:43 Albumin 3.8 g/dL (3.5-5.0) 06/19/18:43 Globulin 2.7 gm/dL (2.2-3.9) 06/19/18 00:43 Albumin/Globulin Ratio 1.4 (1.0-2.1) 06/19/18 00:43 - ECG O2 Sat by Pulse Oximetry: 97 (RA) Pulse Ox Interpretation: Normal - Critical Care Total Time (In Min): 30 Medical Decision Making Medical Decision Making: Time: 21 Impression: 53yo male with copd exacerbation Plan: EKG B-type natriuretic peptide CMP Troponin CBC w/ differential Chest portable Albuterol 9ml Magnesium 2mg Solumedrol 125mg UA Peak flow pre/post tx Reevaluation Labs present no clinically significant abnormalities. CXR presents no active disease 0221 Patient continues to have mild wheezing. Case discussed with Dr. Landers's HEAD [employer]ER Jose Ramon Castro and patient will be admitted for COPD exacerbation Scribe Attestation: Documented by Christianne Velasco, acting as a scribe for Helder Bennett MD Provider Scribe Attestation: All medical record entries made by the Scribe were at my direction and personally dictated by me. I have reviewed the chart and agree that the record accurately reflects my personal performance of the history, physical exam, medical decision making, and the department course for this patient. I have also personally directed, reviewed, and agree with the discharge instructions and disposition. Disposition - Clinical Impression Clinical Impression: COPD (chronic obstructive pulmonary disease) - Patient ED Disposition Is Patient to be Admitted: Yes - Disposition Disposition Time: 02:17 Condition: FAIR - Pt Status Changed To: Hospital Disposition Of: Observation
[2018-06-19] MEDS: Oxycodone/Acetaminophen 5/325 mg Tab PO PRN ×3 (07:07→18:55)
[2018-06-19] MEDS: Levothyroxine 150 MCG TAB PO SCH (07:12)
[2018-06-19] MEDS ORDERED: methylPREDNISolone 40 MG in Sodium Chloride 0.9% 50 ML IVPB SCH (09:00)
[2018-06-19] MEDS: Pantoprazole 20 mg EC Tab PO SCH (09:01)
[2018-06-19] MEDS: Enoxaparin 40 mg Syringe SC SCH (09:01)
[2018-06-19] MEDS: MethylPREDNISolone 40 mg Vial IVP SCH ×2 (09:02→17:25)
--- NOTE | 2018-06-19 09:42 | RAD ---
Date of service: 06/19/2018 HISTORY: chest pain COMPARISON: Comparison made with chest radiograph 06/10/2018 TECHNIQUE: 1 view obtained. FINDINGS: LUNGS: Poor inspiration with low lung volumes, crowded bronchovascular markings and mild bibasilar atelectasis. The central pulmonary vasculature is also slightly increased which is felt to be secondary to poor inspiration however possibility of mild chronic compensated pulmonary venous congestion not excluded. PLEURA: No significant pleural effusion identified, no pneumothorax apparent. CARDIOVASCULAR: No aortic atherosclerotic calcification present. Heart appears borderline/mildly enlarged.. No pulmonary vascular congestion. OSSEOUS STRUCTURES: No significant abnormalities. VISUALIZED UPPER ABDOMEN: Normal. OTHER FINDINGS: None. IMPRESSION: Poor inspiration with low lung volumes, crowded bronchovascular markings and mild bibasilar atelectasis. The central pulmonary vasculature is also slightly increased which is felt to be secondary to poor inspiration however possibility of mild chronic compensated pulmonary venous congestion not excluded.
[2018-06-19] MEDS: Albuterol-Ipratrop 3 mg / 0.5 (3 ml) UD INH SCH ×4 (09:43→20:04)
--- NOTE | 2018-06-19 10:37 | CARD ---
APPROVED REPORT Date of service: 06/18/2018 EKG Measurement Heart [id number] <Conclusion> Sinus tachycardia with premature atrial complexes Left ventricular hypertrophy with repolarization abnormality Septal infarct, age undetermined Abnormal ECG
[2018-06-19] MEDS ORDERED: Promethazine DM 12.5 mg-30 mg/10 ml Syrup PO PRN (11:43)
[2018-06-19] MEDS ORDERED: Fluticasone-Salmeterol 250-50mcg Diskus IH SCH (12:00)
[2018-06-19] MEDS: FLUTICASONE PROPION/SALMETEROL 113-14 IH SCH ×2 (14:40→21:33)
[2018-06-19] MEDS ORDERED: Sodium Chloride 3% for Inhalation 4 ML VIAL.NEB IH PRN (21:22)
--- NOTE | 2018-06-19 21:26 | CP.PCM.HP ---
History of Present Illness - History of Present Illness History of Present Illness: HPI: 53 y/o male with a PMH of Asthma and COPD presented to the ED with worsening dyspnea and associated chest wall pain. Of note, the pt was recently admitted for similar symptoms in May. Prior to admission, the pt was seen in the primary care office and treated with Trelegy inhaler, azithromycin, and a me drol dosepak; questionable compliance suspected. Pulmonology consult added. PMH: Asthma, COPD, Depression, Fractures (right elbow), HTN, Hypercholesterolemia, Hyperthyroidism, Hypothyroidism, Paranoia (As per MD report), Sleep Apnea. PSH: Pacemaker. Allergies: NKDA. Subjective Review of Systems: Reviewed and no additional remarkable complaints except occasional dyspnea. Objective Appears: Anxious, Non-toxic, No Acute Distress. Head Exam: NORMAL INSPECTION, normocephalic. Eye Exam: Normal eye inspection, EOMI, PERRLA. Respiratory Exam: NORMAL BREATHING PATTERN, breath sounds revealed mild wheezing throughout. Cardiovascular Exam: +S1, +S2. RRR. GI & Abdominal Exam: Round, soft, non-tender. Neurological Exam: Alert, Awake, Oriented x3. Psychiatric exam: Anxiety noted. Otherwise cooperative. Skin exam: Normal color, warm, dry. Assessment/Impression/Plan: 1.) COPD Exacerbation -Empiric antibiotic therapy: Rocephin. -Symptomatic treatment: Duonebs + Promethazine. -Steroids: Placed on Solumedrol 40 mg Q8h IVP. -CXR revealed poor inspiration with low lung volumes; increased central pulmonary vasculature. -Pulmonology consult appreciated input. -Pending sputum culture. Present on Admission - Present on Admission Any Indicators Present on Admission: No Past Patient History - Infectious Disease Hx of Infectious Diseases: None - Past Medical History & Family History Past Medical History?: Yes - Past Social History Smoking Status: Current Some Days Smoker - CARDIAC Hx Atrial Fibrillation: Yes Hx Cardia Arrhythmia: (As per MD report) Hx Congestive Heart Failure: (As per MD report) Hx Hypercholesterolemia: Yes Hx Hypertension: Yes Hx Pacemaker: Yes (As per MD report) - PULMONARY Hx Asthma: Yes Hx Chronic Obstructive Pulmonary Disease (COPD): Yes Hx Pneumonia: Yes (08/18/13 as per MD report) Hx Sleep Apnea: Yes - NEUROLOGICAL Hx Alzheimer's Disease: No Hx Multiple Sclerosis: (As per MD report) Hx Parkinson's Disease: (As per MD report) - HEENT Hx HEENT Problems: No - RENAL Hx Chronic Kidney Disease: No - ENDOCRINE/METABOLIC Hx Hyperthyroidism: Yes Hx Hypothyroidism: Yes - HEMATOLOGICAL/ONCOLOGICAL Hx Anemia: No Hx Human Immunodeficiency Virus (HIV): No - INTEGUMENTARY Hx Dermatological Problems: No - MUSCULOSKELETAL/RHEUMATOLOGICAL Hx Fractures: Yes (right elbow) Hx Osteoporosis: (As per MD report) Hx Rheumatoid Arthritis: (As per MD report) - GASTROINTESTINAL Hx Crohn's Disease: (As per MD report) Hx Diverticulitis: (As per MD report) Hx Pancreatitis: (As per MD report) - GENITOURINARY/GYNECOLOGICAL Hx Sexually Transmitted Disorders: (As per MD report) - PSYCHIATRIC Hx Anxiety: Yes (As per MD report) Hx Bipolar Disorder: (As per MD report) Hx Depression: Yes Hx Paranoia: Yes (As per MD report) Hx Post Traumatic Stress Disorder: (As per MD report) Hx Schizophrenia: (As per MD report) - ANESTHESIA Hx Anesthesia: Yes Hx Anesthesia Reactions: No Hx Malignant Hyperthermia: No Has any member of the family had a problem w/ anesthesia?: No Meds Allergies/Adverse Reactions: Allergies Allergy/AdvReac Type Severity Reaction Status Date / Time No Known Allergies Allergy Verified 06/18/18 23:55 Results - Vital Signs Recent Vital Signs: Last Vital Signs Temp 98.1 F 06/19/18 16:26 Pulse 99 H 06/19/18 16:26 Resp 18 06/19/18 16:26 BP 104/61 06/19/18 16:26 Pulse Ox 93 L 06/19/18 16:26 - Labs Result Diagrams: 06/19/18 00:43 06/19/18 00:43 Labs: Laboratory Results - last 24 hr 06/19/18 06/19/18 00:43 00:43 WBC 7.8 RBC 4.00 L Hgb 13.4 Hct 39.9 MCV 100.0 H MCH 33.5 H MCHC 33.5 RDW 15.0 H Plt Count 218 MPV 9.4 Neut % (Auto) 57.9 Lymph % (Auto) 32.1 Moody % (Auto) 7.1 Eos % (Auto) 2.1 Baso % (Auto) 0.8 Neut # (Auto) 4.5 Lymph # (Auto) 2.5 Moody # (Auto) 0.6 Eos # (Auto) 0.2 Baso # (Auto) 0.1 Sodium 137 Potassium 4.2 Chloride 102 Carbon Dioxide 27 Anion Gap 12 BUN 21 H Creatinine 1.2 Est GFR ( Amer) > 60 Est GFR (Non-Af Amer) > 60 Random Glucose 134 H Calcium 9.2 Total Bilirubin 0.5 AST 48 ALT 48 Alkaline Phosphatase 47 Troponin I 0.0660 NT-Pro-B Natriuret Pep 656 Total Protein 6.5 Albumin 3.8 Globulin 2.7 Albumin/Globulin Ratio 1.4 Assessment & Plan (1) Dyspnea Status: Acute (2) COPD (chronic obstructive pulmonary disease) Status: Acute (3) COPD exacerbation Status: Acute Priority: High
--- NOTE | 2018-06-19 22:29 | CON ---
DATE: 06/19/2018 HISTORY OF PRESENT ILLNESS: Mr. Chavira is a 53-year-old male with history of chronic obstructive pulmonary disease who was admitted because of shortness of breath, exercise intolerance, cough productive of thick tenacious sputum. Sputum was greenish in color. He also has had a little bit of fever for the past several days prior to presentation. He indicates that he was recently admitted to hospital and treated for similar condition and sent home. but symptoms have worsened. He continued to smoke until about a week ago prior to this admission. He also has a history of left shoulder injury and has been told that he has an operation, but has not been able to schedule it. PAST MEDICAL HISTORY: Remarkable for chronic obstructive pulmonary disease and morbid obesity. FAMILY HISTORY: Noncontributory. SOCIAL HISTORY: He smokes one pack of cigarettes daily for the past several years. Does not drink and does not use drugs. REVIEW OF SYSTEMS: Essentially remarkable for shortness of breath and exercise intolerance. PHYSICAL EXAMINATION: GENERAL: The patient is alert and oriented, appears to be mildly short of breath. VITAL SIGNS: Blood pressure of 130/79, pulse of 95, respiratory rate is 20 per minute. He is afebrile. O2 sats 96%, up from 91% on nasal cannula oxygen. SKIN: Shows fair turgor. HEENT: Pupils are equal and reactive to light and accommodation. Mouth shows fair hygiene with some mucus engorgement of pharynx. NECK: JVP flat. LUNGS: Fair aeration with some basal dullness and mild wheezing. HEART: Regular. No murmurs or gallop. ABDOMEN: Soft, nontender. No organomegaly. EXTREMITIES: Show no edema or cyanosis. CENTRAL NERVOUS SYSTEM: Grossly intact. LABORATORY DATA AND DIAGNOSTIC DATA: Chest x-ray shows some compressive atelectasis with crowded vessels, otherwise unremarkable. WBC 7.8, hemoglobin 13.4, platelet count of 218,000. Sodium 137, potassium 4.2, BUN of 21, creatinine 1.2, serum glucose 134. Troponin was 0.066. ProBNP 656. IMPRESSION: Acute exacerbation of chronic obstructive pulmonary disease, upper respiratory tract infection, morbid obesity, history of left shoulder injury. PLAN: Aerosolized bronchodilators, intravenous steroids, oxygen. Obtain sputum for Gram stain and cultures. Also place the patient on IV antibiotics. Chest physical therapy already ordered. We will give Advair twice a day. Further therapy will be as ordered. Mani Solis MD
[2018-06-20] MEDS: Albuterol-Ipratrop 3 mg / 0.5 (3 ml) UD INH SCH ×4 (00:27→11:04)
[2018-06-20] MEDS: MethylPREDNISolone 40 mg Vial IVP SCH ×2 (00:28→09:27)
[2018-06-20] MEDS: Oxycodone/Acetaminophen 5/325 mg Tab PO PRN ×2 (00:28→09:36)
[2018-06-20 07:07] LABS: BASO # 0.1 K/uL (0.0-0.2); BASO % 0.3 % (0.0-2.0); HEMOGLOBIN 13.5 g/dL (12.0-18.0); LYMPH # 0.4 K/uL (1.0-4.3); LYMPH % 2.1 % (20.0-40.0); MEAN CELL VOLUME 100.6 fl (80.0-94.0); MEAN CORPUSCULAR HEMOGLOBIN 33.7 pg (27.0-31.0); MEAN CORPUSCULAR HGB CONC 33.5 g/dL (33.0-37.0); MEAN PLATELET VOLUME 9.6 fl (7.2-11.7); MONO # 0.4 K/uL (0.0-0.8); MONO % 2.5 % (0.0-10.0); NEUT # 16.6 K/uL (1.8-7.0); NEUT % 95.1 % (50.0-75.0); PLATELET COUNT 210 K/uL (130-400); RED CELL DISTRIBUTION WIDTH 14.9 % (11.5-14.5); WHITE BLOOD COUNT 17.5 K/uL (4.8-10.8)
[2018-06-20 07:34] LABS: ALB/GLOB RATIO 1.4 (1.0-2.1); ALBUMIN 3.9 g/dL (3.5-5.0); ALT/SGPT 39 U/L (21-72); AST/SGOT 28 U/L (17-59); BLOOD UREA NITROGEN 17 mg/dl (9-20); CALCIUM 10.1 mg/dL (8.4-10.2); GFR NON-AFRICAN AMERICAN > 60
[2018-06-20 08:24] VITALS: BP 110/63; PULSE 106; RESP 20; TEMP 97.9; O2SAT 96
[2018-06-20 09:07] LABS: LYMPHOCYTE 3 % (20-50); MONOCYTE 2 % (0-10); NEUTROPHIL 95 % (42-75); PLATELET ESTIMATE NORMAL (NORMAL); TOTAL CELLS COUNTED 100
[2018-06-20 09:08] LABS: ANISOCYTOSIS SLIGHT; LARGE PLATELETS PRESENT; OVALOCYTES SLIGHT
[2018-06-20] MEDS: Pantoprazole 20 mg EC Tab PO SCH (09:27)
[2018-06-20] MEDS: Enoxaparin 40 mg Syringe SC SCH (09:28)
[2018-06-20] MEDS: Levothyroxine 150 MCG TAB PO SCH (09:29)
[2018-06-20] MEDS: FLUTICASONE PROPION/SALMETEROL 113-14 IH SCH (09:30)
--- NOTE | 2018-06-20 09:50 | CP.PCM.PN ---
Subjective - Date & Time of Evaluation Date of Evaluation: 06/20/18 Time of Evaluation: 09:51 - Subjective Subjective: CLINICALLY IMPROVED SOB RESOLVED WANTS TO GO HOME Objective - Vital Signs/Intake and Output Vital Signs (last 24 hours): Temp Pulse Resp BP Pulse Ox 97.9 F 106 H 20 110/63 96 06/20/18 08:22 06/20/18 08:22 06/20/18 08:22 06/20/18 09:25 06/20/18 08:22 - Medications Medications: Current Medications Albuterol/Ipratropium (Duoneb 3 Mg/0.5 Mg (3 Ml) Ud) 3 ml INH RQ4 [facility] Last Admin: 06/20/18 07:48 Dose: 3 ml Aspirin (Ecotrin) 81 mg PO DAILY [facility] Last Admin: 06/20/18 09:27 Dose: 81 mg Docusate Sodium (Colace) 100 mg PO BID [facility] Last Admin: 06/20/18 09:24 Dose: 100 mg Enoxaparin Sodium (Lovenox) 40 mg SC DAILY [facility]; Protocol Last Admin: 06/20/18 09:28 Dose: 40 mg Furosemide (Lasix) 40 mg PO DAILY [facility] Last Admin: 06/20/18 09:25 Dose: 40 mg Ceftriaxone Sodium 1 gm/ (Sodium Chloride) 100 mls @ 100 mls/hr IVPB DAILY [facility]; Protocol Last Admin: 06/20/18 09:28 Dose: 100 mls/hr Lactulose (Enulose) 20 gm PO DAILY [facility] Last Admin: 06/20/18 09:24 Dose: 20 gm Levothyroxine Sodium (Synthroid) 150 mcg PO DAILY@0630 [facility] Last Admin: 06/20/18 09:29 Dose: 150 mcg Methylprednisolone (Solu-Medrol) 40 mg IVP Q8 [facility] Last Admin: 06/20/18 09:27 Dose: 40 mg Oxycodone/Acetaminophen (Percocet 5/325 Mg Tab) 1 tab PO Q6 PRN PRN Reason: Pain, moderate (4-7) Stop: 06/22/18 06:49 Last Admin: 06/20/18 09:36 Dose: 1 tab Pantoprazole Sodium (Protonix Ec Tab) 20 mg PO DAILY [facility] Last Admin: 06/20/18 09:27 Dose: 20 mg Promethazine HCl/Dextromethorphan (Phenergan Dm Syrup) 10 ml PO Q6 PRN PRN Reason: Cough - Labs Labs: 06/20/18 05:50 06/20/18 05:50 - Constitutional Appears: Well - Head Exam Head Exam: ATRAUMATIC, NORMAL INSPECTION, NORMOCEPHALIC - Eye Exam Eye Exam: EOMI, Normal appearance, PERRL Pupil Exam: NORMAL ACCOMODATION, PERRL - ENT Exam ENT Exam: Mucous Membranes Moist, Normal Exam - Neck Exam Neck Exam: Full ROM, Normal Inspection. absent: Lymphadenopathy - Respiratory Exam Respiratory Exam: Clear to Ausculation Bilateral, Prolonged Expiratory Phase, NORMAL BREATHING PATTERN - Cardiovascular Exam Cardiovascular Exam: REGULAR RHYTHM, +S1, +S2. absent: Murmur - GI/Abdominal Exam GI & Abdominal Exam: Soft, Normal Bowel Sounds. absent: Tenderness - Rectal Exam Rectal Exam: NORMAL INSPECTION - Extremities Exam Extremities Exam: Full ROM, Normal Capillary Refill, Normal Inspection. absent: Joint Swelling, Pedal Edema - Back Exam Back Exam: NORMAL INSPECTION - Neurological Exam Neurological Exam: Alert, Awake, CN II-XII Intact, Normal Gait, Oriented x3 - Psychiatric Exam Psychiatric exam: Normal Affect, Normal Mood - Skin Skin Exam: Dry, Intact, Normal Color, Warm Assessment and Plan - Assessment and Plan (Free Text) Assessment: COPD EXAC IMPROVED LEUKOCYTOSIS DUE TO STEROIDS Plan: TAPER STEROIDS CONTINUE CURRENT RX
== END 2018-06-20 14:04 | disposition home or self-care (01) ==
LOC: H.ER 23:47 → H.ERHOLD 06-19 02:17 → H.MEDSURG1 06-19 03:47
PROVIDERS: ADMIT Family Medicine; ATTEND Family Medicine
DX: J44.1 Chronic obstructive pulmonary disease with (acute) exacerbation (principal); E03.9 Hypothyroidism, unspecified; E66.01 Morbid (severe) obesity due to excess calories; E78.00 Pure hypercholesterolemia, unspecified; G47.30 Sleep apnea, unspecified; T38.0X5A Adverse effect of glucocorticoids and synthetic analogues, initial encounter; D72.829 Elevated white blood cell count, unspecified; I10 Essential (primary) hypertension; I48.91 Unspecified atrial fibrillation; F32.9 Major depressive disorder, single episode, unspecified; Z79.82 Long term (current) use of aspirin; F17.210 Nicotine dependence, cigarettes, uncomplicated; Z68.42 Body mass index [BMI] 45.0-49.9, adult
CPT/HCPCS: 36415; 71045; 80053; 83880; 84145; 84484; 85025; 93005; 94150; 94640; 96374; 99284; G0378; J0696; J1650; J2920; J2930

== ENCOUNTER 2018-06-23 21:40 | Emergency (ER) | payer MEDICAID ==
[2018-06-23 21:40] VITALS: BMI 43.7
[2018-06-23 21:56] VITALS: TEMP 98.3; O2SAT 95
[2018-06-23] MEDS ORDERED: Albuterol-Ipratrop 3 mg / 0.5 (3 ml) UD INH STA (22:31)
[2018-06-23 22:51] LABS: BASO % 0.1 % (0.0-2.0); HEMOGLOBIN 14.7 g/dL (12.0-18.0); LYMPH # 0.5 K/uL (1.0-4.3); LYMPH % 4.5 % (20.0-40.0); MEAN CELL VOLUME 100.5 fl (80.0-94.0); MEAN CORPUSCULAR HEMOGLOBIN 33.3 pg (27.0-31.0); MEAN CORPUSCULAR HGB CONC 33.2 g/dL (33.0-37.0); MEAN PLATELET VOLUME 8.9 fl (7.2-11.7); MONO # 0.4 K/uL (0.0-0.8); MONO % 3.1 % (0.0-10.0); NEUT # 11.1 K/uL (1.8-7.0); NEUT % 92.3 % (50.0-75.0); NRBC % 0.1 % (0.0-0.0); PLATELET COUNT 281 K/uL (130-400); RBC 4.42 Mil/uL (4.40-5.90); RED CELL DISTRIBUTION WIDTH 15.4 % (11.5-14.5)
[2018-06-23 22:54] LABS: VENOUS BLOOD GAS BASE EXCESS 3.1 mmol/L (0.0-2.0); VENOUS BLOOD GAS PCO2 42 mmHg (40-60); VENOUS BLOOD GAS PO2 57 mm/Hg (30-55); VENOUS BLOOD PH 7.43 (7.32-7.43)
[2018-06-23 23:14] LABS: B-TYPE NATRIURETIC PEPTIDE 162 pg/ml (0-900)
[2018-06-23] MEDS ORDERED: Albuterol-Ipratrop 3 mg / 0.5 (3 ml) UD ONE (23:26)
[2018-06-23 23:27] LABS: ALB/GLOB RATIO 1.4 (1.0-2.1); ALBUMIN 4.2 g/dL (3.5-5.0); ALT/SGPT 36 U/L (21-72); AST/SGOT 24 U/L (17-59); BLOOD UREA NITROGEN 29 mg/dl (9-20); CALCIUM 9.9 mg/dL (8.4-10.2); GFR NON-AFRICAN AMERICAN 58
[2018-06-24] MEDS ORDERED: Albuterol-Ipratrop 3 mg / 0.5 (3 ml) UD INH STA (00:28)
--- NOTE | 2018-06-24 00:33 | ED PDOC ---
HPI: Chest Pain Time Seen by Provider: 06/23/18 22:09 Chief Complaint (Nursing): Chest Pain Chief Complaint (Provider): Shortness of breath History Per: Patient History/Exam Limitations: no limitations Onset/Duration Of Symptoms: Hrs Current Symptoms Are (Timing): Still Present Severity: Severe Pain Scale Rating Of: 6 Additional History Per: Patient Additional Complaint(s): 53 year old male with history of COPD and substance abuse. Presents to the ED c/o sudden onset of shortness of breath and chest pain with associated left arm and leg numbness stated 2 hours [employer] SE[employer]. Patient states he was home when this started. Patient reports he was D/C home hospital 3 days ago for same. Patient denies fever, coughing or drug use. Past Medical History Reviewed: Historical Data, Nursing Documentation, Vital Signs Vital Signs: Last Vital Signs Temp 98.3 F 06/23/18 21:53 Pulse 114 H 06/23/18 21:53 Resp 22 06/23/18 21:53 BP 114/80 06/23/18 22:15 Pulse Ox 95 06/23/18 21:53 Primary Care Provider: Richy Landers - Medical History PMH: Anxiety (As per MD report), Asthma, Atrial Fibrillation, COPD, Depression, Fractures (right elbow), HTN, Hypercholesterolemia, Hyperthyroidism, Hypothyroidism, Paranoia (As per MD report), Pneumonia (08/18/13 as per MD report), Sleep Apnea Denies: Alzheimer's Disease, Anemia, CAD, HIV, Chronic Kidney Disease Comment Only: Bipolar Disorder (As per MD report), Cardia Arrhythmia (As per MD report), CHF (As per MD report), Crohn's Disease (As per MD report), Diverticulitis (As per MD report), Multiple Sclerosis (As per MD report), Osteoporosis (As per MD report), Pancreatitis (As per MD report), Parkinson's Disease (As per MD report), Post Traumatic Stress Disorder (As per MD report), Rheumatoid Arthritis (As per MD report), Schizophrenia (As per MD report), Sexually Transmitted Disease (As per MD report) - Surgical History Surgical History: Pacemaker (As per MD report) - Family History Family History: States: Unknown Family Hx - Social History Current smoker - smoking cessation education provided: Yes (quit 1 week ago ) Ex-Smoker (has not smoked in the last 12 months): Yes Alcohol: None Drugs: Denies - Immunization History Hx Tetanus Toxoid Vaccination: No Hx Influenza Vaccination: No Hx Pneumococcal Vaccination: No - Home Medications Home Medications: Ambulatory Orders Medication Instructions Recorded Aspirin [Ecotrin] 81 mg PO DAILY 05/28/18 Levothyroxine [Synthroid] 150 mg PO DAILY 05/28/18 Pantoprazole Sodium [Protonix] 20 mg PO DAILY 05/28/18 Albuterol 0.083% [Albuterol 0.083% 3 ml IH Q8 #1 neb 06/07/18 Inhal Florence (2.5 mg/3 ml) UD] Cyclobenzaprine HCl 10 mg PO TID 06/19/18 Fluticasone/Umeclidin/Vilanter 1 each IH DAILY 06/19/18 [Trelegy Ellipta 100-62.5-25] Furosemide [Lasix] 40 mg PO DAILY 06/19/18 Methylprednisolone [Medrol Dose 4 mg PO DAILY #21 mg 06/20/18 Pack (21 tabs)] Promethazine/Codeine 5 ml PO Q6 #100 ml 06/20/18 [Phenergan/Codeine Oral Syrup] oxyCODONE/Acetaminophen [Percocet 1 tab PO Q6 PRN #20 tab 06/20/18 5/325 mg Tab] Non-Formulary 1 ea INH Q3H #1 ea 06/24/18 - Allergies Allergies/Adverse Reactions: Allergies Allergy/AdvReac Type Severity Reaction Status Date / Time No Known Allergies Allergy Verified 06/23/18 21:56 EDWAR Risk Score for UA/NSTEMI - EDWAR Risk Score Age > 64: NO 3 or more CAD Risk Factors: YES Known CAD (Stenosis greater than 50%): NO Aspirin use in past 7 days: NO Severe Angina: NO EKG ST changes greater than 0.5mm: NO Positive Cardiac Marker: NO EDWAR Score: 1 Risk %: 5% Curb-65 Severity Score - CURB-65 Severity Score Confusion: No Bun >19mg/dl (>7mmol/L): No Respiratory Rate greater than/equal to 30: Yes Systolic BP <90 or Diastolic BP less than/equal 60mmHg: No Age >64: No Curb-65 Score: 1 Percentage 30-day mortality: 2.7% Wells Criteria for PE - Wells Criteria for Pulmonary Embolism Clinical Signs and Symptoms of DVT: No P.E is #1 Diagnosis, or Equally Likely: No Heart Rate >100: Yes Immobilization at least 3 days;Surgery previous 4 weeks: No Previous, objectively diagnosed PE or DVT: No Hemoptysis: No Malignancy w/treatment within 6 months, or palliative: No Total Score: 1.5 - Laboratory Results Result Diagrams: 06/23/18 22:45 06/23/18 22:45 Lab Results: pO2 57 mm/Hg (30-55) H 06/23/18 22:45 ABG Carboxyhemoglobin 3.4 % (0.5-1.5) H 06/23/18 22:45 POC ABG HHb (Measured) 5.8 % (0.0-5.0) H 06/23/18 22:45 ABG Methemoglobin 2.6 % (0.0-3.0) 06/23/18 22:45 VBG pH 7.43 (7.32-7.43) 06/23/18 22:45 VBG pCO2 42 mmHg (40-60) 06/23/18 22:45 VBG HCO3 27.0 mmol/L 06/23/18 22:45 VBG O2 Sat (Calc) 93.8 % (40-65) H 06/23/18 22:45 VBG Base Excess 3.1 mmol/L (0.0-2.0) H 06/23/18 22:45 VBG Hgb O2 Saturation 88.2 % (95.0-98.0) L 06/23/18 22:45 Hemoglobin 15.8 g/dL (11.7-17.4) 06/23/18 22:45 D-Dimer, Quantitative < 200 ng/mlDDU (0-230) 06/23/18 22:45 Troponin I 0.0340 ng/mL (0.00-0.120) 06/23/18 22:45 NT-Pro-B Natriuret Pep 162 pg/ml (0-900) 06/23/18 22:45 Total Bilirubin 0.6 mg/dl (0.2-1.3) 06/23/18 22:45 AST 24 U/L (17-59) 06/23/18 22:45 ALT 36 U/L (21-72) 06/23/18 22:45 Alkaline Phosphatase 52 U/L (38-126) 06/23/18 22:45 Total Protein 7.2 G/DL (6.3-8.2) 06/23/18 22:45 Albumin 4.2 g/dL (3.5-5.0) 06/23/18 22:45 Globulin 3.0 gm/dL (2.2-3.9) 06/23/18 22:45 Albumin/Globulin Ratio 1.4 (1.0-2.1) 06/23/18 22:45 Interpretation Of Abn Labs: labs reviewed by dr. burks - ECG ECG: Positive for: Viewed By De ECG Rhythm: Positive for: Sinus Tachycardia Interpretation Of Abn EKG: interpretated and seen by dr. burks Rate: 121 O2 Sat by Pulse Oximetry: 95 (RA) Pulse Ox Interpretation: Normal - Radiology X-Ray: Read By Radiologist X-Ray Interpretation: No Acute Disease - Critical Care Total Time (In Min): 30 Notes:: solumedrol 125m iv Medical Decision Making Medical Decision Makin CT Head Without IV contrast Findings: CLINICAL HISTORY: Dizziness/ left sided numbness TECHNIQUE: Axial computed tomography images of the head/brain without intravenous contrast. COMPARISON: CT\SD - HEAD W/O CONTRAST - 05/31/2018 03:23 PM EDT FINDINGS: BRAIN: No acute intraparenchymal hemorrhage. No mass lesion. No CT evidence for acute territorial infarct. No midline shift or extra-axial collections. VENTRICLES: No hydrocephalus. ORBITS: The orbits are unremarkable. SINUSES AND MASTOIDS: The paranasal sinuses and mastoid air cells are clear. BONES: No fracture. SOFT TISSUES: Unremarkable. IMPRESSION: No acute intracranial abnormality. No significant change from May 31, 2018. 0015 CR Chest, 2 View Findings: CLINICAL HISTORY: Sob COMPARISON: Comparison is made to previous chest examination dated 06/19/2018. FINDINGS: LUNGS: The lungs appear within normal limits. PLEURAL SPACES: No pleural effusion or pneumothorax. MEDIASTINUM: Cardiac size and mediastinal contours within normal limits. BONES: No acute osseous abnormality. IMPRESSION: No acute cardiopulmonary pathology is evident. Time: 0107 --Spoke to Dr. Landers who said patient to be discharged home with following up with him in his office tomorrow morning. --Patient has nebulizer medication at home but doesn't have a machine. He states he has medication for the machine. --Given return to ED precautions, patient understands and agrees to plan. Disposition - Clinical Impression Clinical Impression: COPD exacerbation - Patient ED Disposition Is Patient to be Admitted: No Counseled Patient/Family Regarding: Diagnosis, Need For Followup, Rx Given - Disposition Referrals: Richy Landers MD [Staff Provider] - Disposition: Routine/Home Disposition Time: 01:48 Condition: STABLE Prescriptions: Non-Formulary 1 ea INH Q3H #1 ea Instructions: Exacerbation of COPD Forms: [facility] ([employer]) Print Language: SINHALA - POA Present On Arrival: None
[2018-06-24 01:29] LABS: TOTAL CELLS COUNTED 100
[2018-06-24 01:30] LABS: LYMPHOCYTE 4 % (20-50); MONOCYTE 2 % (0-10); NEUTROPHIL 94 % (42-75); PLATELET ESTIMATE NORMAL (NORMAL)
[2018-06-24 02:11] VITALS: BP 112/70; RESP 20
[2018-06-24 05:32] VITALS: PULSE 121
--- NOTE | 2018-06-24 08:27 | RAD ---
Date of service: 06/23/2018 HISTORY: SOB COMPARISON: Portable chest 06/19/2018. TECHNIQUE: Chest PA and lateral views FINDINGS: LUNGS: Mildly improved inspiratory volume. No active pulmonary disease. PLEURA: No significant pleural effusion identified. No pneumothorax apparent. CARDIOVASCULAR: No aortic atherosclerotic calcification present. Normal cardiac size. No pulmonary vascular congestion. OSSEOUS STRUCTURES: No significant abnormalities. VISUALIZED UPPER ABDOMEN: Normal. OTHER FINDINGS: None. IMPRESSION: No interval acute cardiopulmonary disease appreciated.
--- NOTE | 2018-06-24 10:57 | CT ---
Date of service: 06/23/2018 PROCEDURE: CT HEAD WITHOUT CONTRAST. HISTORY: Dizziness/left sided numbness COMPARISON: 05/31/2018. CT head. TECHNIQUE: Axial computed tomography images were obtained through the head/brain without intravenous contrast. Supplemental Coronal and Sagittal projections created and reviewed. Radiation dose: Total exam DLP = 837.58 mGy-cm. This CT exam was performed using one or more of the following dose reduction techniques: Automated exposure control, adjustment of the mA and/or kV according to patient size, and/or use of iterative reconstruction technique. FINDINGS: HEMORRHAGE: No intracranial hemorrhage. BRAIN: No mass effect or edema. No atrophy or chronic microvascular ischemic changes. VENTRICLES: Unremarkable. No hydrocephalus. CALVARIUM: Unremarkable. PARANASAL SINUSES: Unremarkable as visualized. No significant inflammatory changes. MASTOID AIR CELLS: Unremarkable as visualized. No inflammatory changes. OTHER FINDINGS: None. IMPRESSION: No acute intracranial abnormalities. No significant findings to account for the clinical presentation. No significant interval change compared to the prior examination(s). Concordant results (preliminary interpretation) provided by Ongo. Procedure Completed: 22:59. Preliminary Report: Interpreted and electronically signed: 23:57. Final Interpretation: 10:54. June 24, 2018.
== END 2018-06-24 02:11 | disposition home or self-care (01) ==
LOC: H.ER 21:40
DX: J44.1 Chronic obstructive pulmonary disease with (acute) exacerbation (principal); E03.9 Hypothyroidism, unspecified; E05.90 Thyrotoxicosis, unspecified without thyrotoxic crisis or storm; E78.00 Pure hypercholesterolemia, unspecified; F43.10 Post-traumatic stress disorder, unspecified; G20 Parkinson's disease; G35 Multiple sclerosis; I11.0 Hypertensive heart disease with heart failure; K50.90 Crohn's disease, unspecified, without complications; Z95.0 Presence of cardiac pacemaker
CPT/HCPCS: 70450; 71046; 80053; 82803; 83880; 84484; 85025; 85378; 96374; 99284; J2930

== ENCOUNTER 2018-07-06 08:02 | Inpatient (IN) | payer MEDICAID ==
[2018-07-06] MEDS ORDERED: Albuterol-Ipratrop 3 mg / 0.5 (3 ml) UD INH STA (08:16)
[2018-07-06] MEDS ORDERED: Albuterol-Ipratrop 3 mg / 0.5 (3 ml) UD ONE (08:24)
--- NOTE | 2018-07-06 08:27 | ED PDOC ---
HPI: Chest Pain Time Seen by Provider: 07/06/18 08:08 Chief Complaint (Nursing): Chest Pain Chief Complaint (Provider): Chest Pain History Per: Patient History/Exam Limitations: no limitations Onset/Duration Of Symptoms: Days (2) Additional Complaint(s): 53 y/o obese male with a history of COPD and hypertension presents to the ED complaining of shortness of breath, chest pain, and cough since 2 days ago. Patient states the pain is interior radiating to his back. He reports he feels like he has a "cold" and admits taking aspirin daily including this morning. Prior chart review, patient was seen on June 24 for COPD exacerbation and was admitted early June for Pulmonary COPD exacerbation. Patient denies taking his blood pressure medication today, cardiac issues, or any similar pain. PMD: Richy Harper Past Medical History Reviewed: Historical Data, Nursing Documentation, Vital Signs Vital Signs: Last Vital Signs Temp 97.7 F 07/06/18 08:09 Pulse 93 H 07/06/18 08:09 Resp 18 07/06/18 08:09 BP 144/82 07/06/18 08:09 Pulse Ox 95 07/06/18 08:09 Primary Care Provider: Richy Landers - Medical History PMH: Anxiety, Asthma, Atrial Fibrillation, COPD, Depression, Fractures (right elbow), HTN, Hypercholesterolemia, Hyperthyroidism, Hypothyroidism, Paranoia (As per MD report), Pneumonia (08/18/13 as per MD report), Sleep Apnea Denies: Alzheimer's Disease, Anemia, CAD, HIV, Chronic Kidney Disease Comment Only: Bipolar Disorder (As per MD report), Cardia Arrhythmia (As per MD report), CHF (As per MD report), Crohn's Disease (As per MD report), Diverticulitis (As per MD report), Multiple Sclerosis (As per MD report), Osteoporosis (As per MD report), Pancreatitis (As per MD report), Parkinson's Disease (As per MD report), Post Traumatic Stress Disorder (As per MD report), Rheumatoid Arthritis (As per MD report), Schizophrenia (As per MD report), Sexually Transmitted Disease (As per MD report) - Surgical History Surgical History: Denies: Pacemaker - Family History Family History: States: Unknown Family Hx - Social History Current smoker - smoking cessation education provided: No Ex-Smoker (has not smoked in the last 12 months): No (Quit smoking 3 weeks ago.) - Immunization History Hx Tetanus Toxoid Vaccination: No Hx Influenza Vaccination: No Hx Pneumococcal Vaccination: No - Home Medications Home Medications: Ambulatory Orders Medication Instructions Recorded Aspirin [Ecotrin] 81 mg PO DAILY 05/28/18 Levothyroxine [Synthroid] 150 mg PO DAILY 05/28/18 Pantoprazole Sodium [Protonix] 20 mg PO DAILY 05/28/18 Fluticasone/Umeclidin/Vilanter 1 each IH DAILY 06/19/18 [Trelegy Ellipta 100-62.5-25] Acetylcysteine 20% [Mucomyst 20% 3 ml IH Q8 PRN 07/06/18 Inhal Florence (10ml)] Albuterol 0.083% [Albuterol 0.083% 3 ml IH Q8 PRN 07/06/18 Inhal Florence (2.5 mg/3 ml) UD] Cetirizine HCl/Pseudoephedrine 1 tab PO Q12 07/06/18 [Zyrtec-D Tablet] Lactulose [Generlac] 15 ml PO DAILY 07/06/18 Montelukast [Singulair] 10 mg PO DAILY 07/06/18 traMADol [Ultram] 50 mg PO Q6 PRN 07/06/18 Clopidogrel [Plavix] 75 mg PO DAILY #30 tab 07/08/18 Ibuprofen [Motrin Tab] 800 mg PO Q8 PRN #20 tab 07/08/18 Simvastatin 40 mg PO DAILY #30 tablet 07/08/18 - Allergies Allergies/Adverse Reactions: Allergies Allergy/AdvReac Type Severity Reaction Status Date / Time Iodinated Contrast- Oral and AdvReac ITCHING Verified 07/06/18 17:59 IV Dye Review of Systems ROS Statement: Except As Marked, All Systems Reviewed And Found Negative Cardiovascular: Positive for: Chest Pain Respiratory: Positive for: Cough, Shortness of Breath Neurological: Positive for: Dizziness Physical Exam - Reviewed Nursing Documentation Reviewed: Yes Vital Signs Reviewed: Yes - Physical Exam Appears: Positive for: Well (Obese), Non-toxic, No Acute Distress Skin: Positive for: Normal Color, Warm, Dry. Negative for: Diaphoresis Respiratory: Positive for: Normal Breath Sounds, Wheezing (Bilaterally with pharynx entry.). Negative for: Respiratory Distress Extremity: Positive for: Pedal Edema (1+ bilaterally) Neurological/Psych: Positive for: Awake, Alert, Normal Tone, Oriented (x3). Negative for: Motor/Sensory Deficits - Laboratory Results Result Diagrams: 07/06/18 08:30 07/06/18 08:30 - ECG O2 Sat by Pulse Oximetry: 95 Medical Decision Making Medical Decision Making: Time:814 Impression: Plan:Work COPD exacerbation to rule out ACS given ST changes. -EKG -B-TYPE -CMP -Troponin -CBC -Chest x-ray -Albuterol 3ml -Nitrostat 0.4mg -Solu-medrol 125mg -PEAK flow 0820: EKG: NSR [address] changes; new prior to EKG. labs reviewed, trop neg Rail [employer] M[employer]ainer normal admit to [facility], Dr Huston cardiology contacted and made aware of case, obtain CTA chest r/o dissection avoid anticoagulation until CTA r/o dissection given quality of pain radiating to back ---- Scribe Attestation: Documented by Karla Sanchez, acting as a scribe for Simon Jean Provider Scribe Attestation: All medical record entries made by the Scribe were at my direction and personally dictated by me. I have reviewed the chart and agree that the record accurately reflects my personal performance of the history, physical exam, medical decision making, and the department course for this patient. I have also personally directed, reviewed, and agree with the discharge instructions and disposition. Disposition - Clinical Impression Clinical Impression: Chest pain, COPD exacerbation - Patient ED Disposition Is Patient to be Admitted: Yes Counseled Patient/Family Regarding: Studies Performed, Diagnosis - Disposition Disposition Time: 09:45 Condition: STABLE - Pt Status Changed To: Hospital Disposition Of: Inpatient - Admit Certification Admit to Inpatient:: After my assessment, the patient will require hosp italization for at least two midnights. This is because of the severity of symptoms shown, intensity of services needed, and/or the medical risk in this patient being treated as an outpatient.
[2018-07-06 08:56] LABS: BASO # 0.1 K/uL (0.0-0.2); BASO % 0.6 % (0.0-2.0); EOS # 0.1 K/uL (0.0-0.7); EOS % 0.8 % (0.0-4.0); HEMOGLOBIN 14.1 g/dL (12.0-18.0); LYMPH # 1.8 K/uL (1.0-4.3); MEAN CELL VOLUME 100.6 fl (80.0-94.0); MEAN CORPUSCULAR HEMOGLOBIN 33.7 pg (27.0-31.0); MEAN CORPUSCULAR HGB CONC 33.5 g/dL (33.0-37.0); MEAN PLATELET VOLUME 9.2 fl (7.2-11.7); MONO # 0.5 K/uL (0.0-0.8); MONO % 5.1 % (0.0-10.0); NEUT # 7.2 K/uL (1.8-7.0); NEUT % 74.5 % (50.0-75.0); NRBC % 0.1 % (0.0-0.0); RBC 4.18 Mil/uL (4.40-5.90); WHITE BLOOD COUNT 9.6 K/uL (4.8-10.8)
[2018-07-06 09:22] LABS: B-TYPE NATRIURETIC PEPTIDE 779 pg/ml (0-900)
[2018-07-06 09:24] LABS: ALB/GLOB RATIO 1.4 (1.0-2.1); ALT/SGPT 41 U/L (21-72); AST/SGOT 42 U/L (17-59); BLOOD UREA NITROGEN 13 mg/dl (9-20); CALCIUM 9.3 mg/dL (8.4-10.2); GFR NON-AFRICAN AMERICAN > 60
--- NOTE | 2018-07-06 10:08 | RAD ---
Date of service: 07/06/2018 HISTORY: SOB COMPARISON: 06/23/2018 TECHNIQUE: 1 view obtained. FINDINGS: LUNGS: No consolidation. Low lung volumes noted. PLEURA: No significant pleural effusion identified, no pneumothorax apparent. CARDIOVASCULAR: No aortic atherosclerotic calcification present. Mild cardiomegaly similar mild concomitant pulmonary venous congestion probable. No worsening suggested. OSSEOUS STRUCTURES: Thoracic spondylosis VISUALIZED UPPER ABDOMEN: Normal. OTHER FINDINGS: None. IMPRESSION: Probable mild pulmonary venous congestion. Mild cardiomegaly No david pleural effusion or consolidation.
[2018-07-06] MEDS ORDERED: Sodium Chloride 0.9% 50 ML IV ONE (14:09)
[2018-07-06] MEDS ORDERED: Iodixanol 320 MG/ML 100 ML BOTTLE IV ONE (14:09)
[2018-07-06] MEDS ORDERED: DiphenhydrAMINE 50 mg/ml Inj ONE (14:31)
[2018-07-06] MEDS ORDERED: DiphenhydrAMINE 50 mg/ml Inj IV STA (14:44)
[2018-07-06] MEDS ORDERED: ACETYLCYSTEINE 20% IH PRN (14:50)
[2018-07-06] MEDS ORDERED: Enoxaparin 40 mg Syringe SC SCH (15:00)
[2018-07-06] MEDS ORDERED: MethylPREDNISolone 40 mg Vial IVP SCH (15:30)
--- NOTE | 2018-07-06 15:55 | CT ---
PROCEDURE: CT Angiography Chest, Abdomen and Pelvis with and without intravenous contrast HISTORY: chest pain radiating to back ro dissection COMPARISON: 05/30/2018 CT thorax without contrast. TECHNIQUE: Contiguous axial images of the chest, abdomen and pelvis were obtained in the phase of aortic enhancement. A noncontrast enhanced CT of the chest was also obtained to evaluate for possible intramural thrombus. Coronal and sagittal reformats were generated. IV dose administered: 99 cc Visipaque 320. Radiation dose: Total exam DLP = 1253.75 mGy-cm. This CT exam was performed using one or more of the following dose reduction techniques: Automated exposure control, adjustment of the mA and/or kV according to patient size, and/or use of iterative reconstruction technique. FINDINGS: CT ANGIOGRAPHY OF THE CHEST WITH & WITHOUT CONTRAST: AORTA (CHEST AND ABDOMEN): The thoracic and abdominal aorta are unremarkable, without aneurysm, dissection or rupture. No intramural thrombus identified in the thoracic aorta on the non-contrast ct of the chest. The celiac axis, superior mesenteric artery, inferior mesenteric artery and the renal arteries are widely patent. The pelvic arteries are unremarkable. LUNGS: Stable lower airway disease. Redemonstration solid noncalcified pulmonary nodule lateral segment right lower lobe 7 x 9 mm. MEDIASTINUM: Unremarkable. Normal caliber aorta and pulmonary arterial trunk. No aortic dissection. Normal size heart. LYMPH NODES: Unremarkable. PLEURA: Unremarkable. No pneumothorax. No pleural fluid. BONES: Unremarkable. OTHER FINDINGS: None. CT ANGIOGRAPHY OF THE ABDOMEN AND PELVIS WITH CONTRAST: LIVER: Unremarkable. No gross lesion or ductal dilatation. GALLBLADDER AND BILE DUCTS: Unremarkable. PANCREAS: Unremarkable. No gross lesion or ductal dilatation. SPLEEN: Unremarkable. ADRENALS: Unremarkable. No mass. KIDNEYS AND URETERS: Unremarkable. No hydronephrosis. No solid mass. VASCULATURE: Unremarkable. No aortic aneurysm. No aortic atherosclerotic calcification or mural plaque present. STOMACH AND BOWEL: Distended stomach with air-fluid level. Constipation without fecal impaction or obstruction. APPENDIX: A normal appendix is visualized in it's entirety. High density material within the appendix noted. PERITONEUM: Unremarkable. No free fluid. No free air. LYMPH NODES: Unremarkable. No enlarged lymph nodes. BLADDER: Unremarkable. REPRODUCTIVE: Unremarkable. BONES: No acute fracture. OTHER FINDINGS: None. IMPRESSION: No significant or acute findings to account for/ related to the clinical presentation. Additional benign and/or incidental findings described above.
[2018-07-06] MEDS: Albuterol-Ipratrop 3 mg / 0.5 (3 ml) UD INH SCH ×2 (16:57→19:29)
[2018-07-06] MEDS ORDERED: methylPREDNISolone 40 MG in Sodium Chloride 0.9% 50 ML IVPB SCH (17:00)
[2018-07-06] MEDS: Promethazine DM 12.5 mg-30 mg/10 ml Syrup PO PRN (17:27)
--- NOTE | 2018-07-06 17:46 | CP.PCM.CON ---
History of Present Illness - History of Present Illness History of Present Illness: I was asked to see patient by Dr Landers. Patient seen 07/06/18 [id number] Patient is a 53 year old obese male with HTN tobacco smoking who presents with chest pain and dyspnea. Patient states symptoms began about one month ago when he developed progressive dyspnea on exertion and chest pain. He has substernal and left sided chest tightness and symptoms which radiate to the back. He states symptoms have gotten progressively worse. He has had 3 visits to the ER in the last month with the same symptoms. There was an attempt to perform CT chest however the patient had and allergic reaction, and became dyspneic. Review of Systems - Constitutional Constitutional: absent: As Per HPI, Anorexia, Chills, Daytime Sleepiness, Excessive Sweating, Fatigue, Fever, Frequent Falls, Headache, Increased Appetite, Lethargy, Malaise, Night Sweats, Snoring, Sleep Apnea, Weight Gain, Weight Loss, Weakness, Other - EENT Eyes: absent: As Per HPI, Blind Spots, Blurred Vision, Change in Vision, Decreased Night Vision, Diplopia, Discharge, Dry Eye, Exophthalmos, Floaters, Irritation, Itchy Eyes, Loss of Peripheral Vision, Pain, Photophobia, Requires Corrective Lenses, Sees Flashes, Spots in Vision, Tunnel Vision, Other Visual Disturbances, Loss of Vision, Other Ears: absent: As Per HPI, Decreased Hearing, Ear Discharge, Ear Pain, Tinnitus, Abnormal Hearing, Disequilibrium, Dizziness, Other Nose/Mouth/Throat: absent: As Per HPI, Epistaxis, Nasal Congestion, Nasal Discharge, Nasal Obstruction, Nasal Trauma, Nose Pain, Post Nasal Drip, Sinus Pain, Sinus Pressure, Bleeding Gums, Change in Voice, Dental Pain, Dry Mouth, Dysphagia, Halitosis, Hoarsness, Lip Swelling, Mouth Lesions, Mouth Pain, Odynophagia, Sore Throat, Throat Swelling, Tongue Swelling, Facial Pain, Neck Pain, Neck Mass, Other - Cardiovascular Cardiovascular: Chest Pain at Rest, Chest Pain with Activity, Dyspnea, Dyspnea on Exertion - Respiratory Respiratory: Dyspnea, Wheezing - Gastrointestinal Gastrointestinal: absent: As Per HPI, Abdominal Pain, Belching, Bloating, Change in Bowel Habits, Change in Stool Character, Coffee Ground Emesis, Constipation, Cramping, Diarrhea, Dyspepsia, Dysphagia, Early Satiety, Excessive Flatus, Fecal Incontinence, Heartburn, Hematemesis, Hematochezia, Loose Stools, Melena, Nausea, Odynophagia, Temesmus, Vomiting, Other - Genitourinary Genitourinary: absent: As Per HPI, Change in Urinary Stream, Difficulty Urinating, Dysuria, Flank Pain, Hematuria, Pyuria, Nocturia, Urinary Incontinence, Urinary Frequency, Urinary Hesitance, Urinary Urgency, Voiding Freq/Small Amts, Freq UTI, Hx Renal/Bladder Calculi, Hx /Renal Surgery, Bladder Distension, Other - Musculoskeletal Musculoskeletal: absent: As Per HPI, Abnormal Gait, Arthralgias, Atrophy, Back Pain, Deformity, Joint Swelling, Limited Range of Motion, Loss of Height, Muscle Cramps, Muscle Weakness, Myalgias, Neck Pain, Numbness, Radiating Pain into Limb, Stiffness, Tingling, Other - Integumentary Integumentary: absent: As Per HPI, Acne, Alopecia, Bleeding Lesions, Change in Hair, Change in Nails, Change in Pigmentation, Changing Lesions, Dry Skin, Erythema, Furuncle, Hirsutism, Lesions, New Lesions, Non-Healing Lesions, Photosensitivity, Pruritus, Rash, Skin Pain, Skin Ulcer, Sores, Striae, Swelling, Unusual Bruising, Wounds, Jaundice, Other - Neurological Neurological: absent: As Per HPI, Abnormal Gait, Abnormal Hearing, Abnormal M ovements, Abnormal Speech, Behavioral Changes, Burning Sensations, Confusion, Convulsions, Disequilibrium, Dizziness, Numbness, Focal Weakness, Frequent Falls, Headaches, Lack of Coordination, Loss of Vision, Memory Loss, Paresthesias, Radicular Pain, Restless Legs, Sensory Deficit, Syncope, Tingling, Tremor, Vertigo, Weakness, Other Visual Disturbances, Other - Psychiatric Psychiatric: absent: As Per HPI, Abnormal Sleep Pattern, Anhedonia, Anxiety, Auditory Hallucinations, Behavioral Changes, Change in Appetite, Change in Libido, Confusion, Depression, Difficulty Concentrating, Hallucinations, Homicidal Ideation, Hopelessness, Irritability, Memory Loss, Mood Swings, Panic Attacks, Paranoia, Suicidal Ideation, Visual Hallucinations, Tactile Hallucinat ions, Other - Endocrine Endocrine: absent: As Per HPI, Change in Body Appearance, Change in Libido, Cold Intolorance, Deepening of Voice, Excessive Sweating, Fatigue, Flushing, Heat Intolorance, Increase in Ring/Shoe/Hat Size, Palpitations, Polydipsia, Polyphag ia, Polyuria, Other - Hematologic/Lymphatic Hematologic: absent: As Per HPI, Easy Bleeding, Easy Bruising, Lymphadenopathy, Other Past Patient History - Infectious Disease Hx of Infectious Diseases: None - Past Medical History & Family History Past Medical History?: Yes - Past Social History Smoking Status: Former Smoker - CARDIAC Hx Atrial Fibrillation: Yes Hx Cardia Arrhythmia: (As per MD report) Hx Congestive Heart Failure: (As per MD report) Hx Hypercholesterolemia: Yes Hx Hypertension: Yes Hx Pacemaker: No - PULMONARY Hx Asthma: Yes Hx Chronic Obstructive Pulmonary Disease (COPD): Yes Hx Pneumonia: Yes (08/18/13 as per MD report) Hx Sleep Apnea: Yes - NEUROLOGICAL Hx Alzheimer's Disease: No Hx Multiple Sclerosis: (As per MD report) Hx Parkinson's Disease: (As per MD report) - HEENT Hx HEENT Problems: No - RENAL Hx Chronic Kidney Disease: No - ENDOCRINE/METABOLIC Hx Hyperthyroidism: Yes Hx Hypothyroidism: Yes - HEMATOLOGICAL/ONCOLOGICAL Hx Anemia: No Hx Human Immunodeficiency Virus (HIV): No - INTEGUMENTARY Hx Dermatological Problems: No - MUSCULOSKELETAL/RHEUMATOLOGICAL Hx Falls: No Hx Fractures: Yes (right elbow) Hx Osteoporosis: (As per MD report) Hx Rheumatoid Arthritis: (As per MD report) - GASTROINTESTINAL Hx Crohn's Disease: (As per MD report) Hx Diverticulitis: (As per MD report) Hx Pancreatitis: (As per MD report) - GENITOURINARY/GYNECOLOGICAL Hx Sexually Transmitted Disorders: (As per MD report) - PSYCHIATRIC Hx Anxiety: Yes Hx Bipolar Disorder: (As per MD report) Hx Depression: Yes Hx Paranoia: Yes (As per MD report) Hx Post Traumatic Stress Disorder: (As per MD report) Hx Schizophrenia: (As per MD report) Hx Substance Use: Yes - ANESTHESIA Hx Anesthesia: Yes Hx Anesthesia Reactions: No Hx Malignant Hyperthermia: No Meds Allergies/Adverse Reactions: Allergies Allergy/AdvReac Type Severity Reaction Status Date / Time No Known Allergies Allergy Verified 07/06/18 08:06 - Medications Medications: Current Medications Albuterol/Ipratropium (Duoneb 3 Mg/0.5 Mg (3 Ml) Ud) 3 ml INH RQID CHAZ Last Admin: 07/06/18 16:57 Dose: 3 ml Aspirin (Ecotrin) 81 mg PO DAILY [facility] Enoxaparin Sodium (Lovenox) 40 mg SC DAILY [facility]; Protocol Last Admin: 07/06/18 17:25 Dose: 40 mg Home Med (Acetylcysteine 20%) 3 ml IH Q8 PRN PRN Reason: Wheezing Ibuprofen (Motrin Tab) 800 mg PO Q8 [facility] Last Admin: 07/06/18 17:26 Dose: 800 mg Levothyroxine Sodium (Synthroid) 150 mcg PO DAILY@0630 [facility] Methylprednisolone (Solu-Medrol) 40 mg IVP Q12H [facility] Montelukast Sodium (Singulair) 10 mg PO DAILY [facility] Pantoprazole Sodium (Protonix Ec Tab) 40 mg PO DAILY [facility] Promethazine HCl/Dextromethorphan (Phenergan Dm Syrup) 10 ml PO Q8 PRN PRN Reason: Cough Last Admin: 07/06/18 17:27 Dose: 10 ml Physical Exam - Constitutional Appears: Non-toxic - Head Exam Head Exam: NORMAL INSPECTION - Eye Exam Eye Exam: Normal appearance - ENT Exam ENT Exam: Mucous Membranes Moist, Normal Exam, Normal Oropharynx - Neck Exam Neck exam: Positive for: Full Rom, Normal Inspection. Negative for: Lymphadenopathy, Thyromegaly - Respiratory Exam Respiratory Exam: Wheezes - Cardiovascular Exam Cardiovascular Exam: REGULAR RHYTHM - GI/Abdominal Exam GI & Abdominal Exam: Normal Bowel Sounds - Rectal Exam Rectal Exam: Deferred - Extremities Exam Extremities exam: Negative for: pedal edema - Back Exam Back exam: NORMAL INSPECTION - Neurological Exam Neurological exam: Alert, Oriented x3 - Psychiatric Exam Psychiatric exam: Normal Affect - Skin Skin Exam: Normal Color Results - Vital Signs Recent Vital Signs: Last Vital Signs Temp 98 F 07/06/18 16:10 Pulse 101 H 07/06/18 17:11 Resp 16 07/06/18 16:10 BP 116/72 07/06/18 16:10 Pulse Ox 95 07/06/18 16:10 - Labs Result Diagrams: 07/06/18 08:30 07/06/18 08:30 Labs: Laboratory Results - last 24 hr 07/06/18 07/06/18 07/06/18 08:30 08:30 15:45 WBC 9.6 RBC 4.18 L Hgb 14.1 Hct 42.1 MCV 100.6 H MCH 33.7 H MCHC 33.5 RDW 15.0 H Plt Count 205 MPV 9.2 Neut % (Auto) 74.5 Lymph % (Auto) 19.0 L [place] % (Auto) 5.1 Eos % (Auto) 0.8 Baso % (Auto) 0.6 Neut # (Auto) 7.2 H Lymph # (Auto) 1.8 [place] # (Auto) 0.5 Eos # (Auto) 0.1 Baso # (Auto) 0.1 Sodium 137 Potassium 4.1 Chloride 101 Carbon Dioxide 29 Anion Gap 11 BUN 13 Creatinine 1.1 Est GFR ( Amer) > 60 Est GFR (Non-Af Amer) > 60 Random Glucose 125 H Calcium 9.3 Total Bilirubin 0.9 AST 42 ALT 41 Alkaline Phosphatase 54 Troponin I 0.0880 0.0490 NT-Pro-B Natriuret Pep 779 Total Protein 6.7 Albumin 4.0 Globulin 2.7 Albumin/Globulin Ratio 1.4 - EKG Data EKG Interpreted by: Myself - EKG Data EKG Specific Queries T Wave Inversions Noted in: I, AVL, V2, V3, V4, V5 - EKG Data Interpretation: Acute Ischemia Assessment & Plan (1) Unstable angina Assessment and Plan: patient's symptoms seem consistent with ACS. I have reviewed the EKGs from May, the beginning of June, and today. The patient has evolved new biphasic T waves in the precordail and lateral leads. This is highly suggestive of an unstable plaque in the proximal LAD. The echo reveals normal LV function and no wall motion anbormalities. However due to the unstable nature of the patient's symptoms and evolving EKG, he will require evaluation of his coronary anatomy. Nonivasive stress testing will be dangerous given the ischemic EKG. will start Lovenox. will transfer for cardiac cath. risks and benefits were discussed in detail with the patient who agrees. Status: Acute (2) Dyspnea Assessment and Plan: as abve. will give steroids for possible contrast induced bronchospasm Status: Acute
--- NOTE | 2018-07-06 17:53 | CARD ---
APPROVED REPORT Date of service: 07/06/2018 EKG Measurement Heart [id number] <Conclusion> Normal sinus rhythm Septal infarct, age undetermined ST & T wave abnormality, consider lateral ischemia Abnormal ECG
[2018-07-06] MEDS ORDERED: Enoxaparin 120 mg Syringe SC SCH ×2 (18:00→22:45)
--- NOTE | 2018-07-06 18:08 | CARD ---
APPROVED REPORT Date of service: 07/06/2018 EXAM: Two-dimensional and M-mode echocardiogram with Doppler and color Doppler. Other Information Quality : AverageRhythm : NSR Technically limited study due to body habitus. INDICATION Chest Pain 2D DIMENSIONS IVSd1.88 (0.7-1.1cm)LVDd4.19 (3.9-5.9cm) LVOT Diameter2.11 (1.8-2.4cm)PWd1.42 (0.7-1.1cm) IVSs1.86 (0.8-1.2cm)LVDs2.26 (2.5-4.0cm) FS (%) 46.1 %PWs2.15 (0.8-1.2cm) M-Mode DIMENSIONS Left Atrium (MM)5.09 (2.5-4.0cm)IVSd1.47 (0.7-1.1cm) Aortic Root3.56 (2.2-3.7cm)LVDd4.47 (4.0-5.6cm) Aortic Cusp Exc.2.59 (1.5-2.0cm)PWd1.91 (0.7-1.1cm) IVSs2.09 cmFS (%) 52 % LVDs2.16 (2.0-3.8cm)PWs2.63 cm Aortic Valve AoV Peak Kgybdvmv395.7cm/sAoV VTI27.5cmAO Peak GR.14mmHg LVOT Peak Ltbnlpjz936.5cm/sLVOT VTI30.03cmAO Mean GR.8mmHg LUIS A (VMAX)1.31en1PWY (VTI)1.62cm2 Mitral Valve MV E Wvsbvdjt18.8cm/sMV DECEL VERL210vuZF A Fgzovaak59.5cm/s MV PLJ66mrR/A ratio1.0MVA (PHT)3.05cm2 TDI Lateral E' Peak V10.10cm/sMedial E' Peak V5.95cm/sE/Lateral E'7.5 E/Medial E'12.7 Tricuspid Valve TR Peak Njooyuev952dy/sRAP CQLSXTAJ55fvWjPU Peak Gr.9mmHg [id number] LEFT VENTRICLE The left ventricle is normal size. There is mild to moderate concentric left ventricular hypertrophy. The left ventricular systolic function is normal. The estimated ejection fraction is 60-65% No regional wall motion abnormalities noted.. Transmitral Doppler flow pattern is Grade I-abnormal relaxation pattern. No left ventricle thrombus noted on this study. There is no ventricular septal defect visualized. There is no left ventricular aneurysm. There is no mass noted in the left ventricle. RIGHT VENTRICLE The right ventricle is normal size. There is normal right ventricular wall thickness. The right ventricular systolic function is normal. ATRIA The left atrium is mildly dilated. The right atrium size is normal. The interatrial septum is intact with no evidence for an atrial septal defect. AORTIC VALVE The aortic valve is normal in structure. No aortic regurgitation is present. There is no aortic valvular stenosis. There is no aortic valvular vegetation. MITRAL VALVE The mitral valve is normal in structure. There is no evidence of mitral valve prolapse. There is no mitral valve stenosis. There is mild mitral valve regurgitation noted. TRICUSPID VALVE The tricuspid valve is normal in structure. There is mild tricuspid valve regurgitation noted. RVSP is calculated at less than 20 mm Hg. There is no tricuspid valve prolapse or vegetation. There is no tricuspid valve stenosis. PULMONIC VALVE The pulmonary valve is normal in structure. There is no pulmonic valvular regurgitation. There is no pulmonic valvular stenosis. GREAT VESSELS The aortic root is normal in size. The ascending aorta is normal in size. The pulmonary artery is normal. The IVC is normal in size and collapses >50% with inspiration. PERICARDIAL EFFUSION There is no pericardial effusion. There is no pleural effusion. <Conclusion> There is mild to moderate concentric left ventricular hypertrophy. The estimated ejection fraction is 60-65% Transmitral Doppler flow pattern is Grade I-abnormal relaxation pattern. The left atrium is mildly dilated. There is mild mitral valve regurgitation noted. There is mild tricuspid valve regurgitation noted. RVSP is calculated at less than 20 mm Hg.
[2018-07-06] MEDS: MethylPREDNISolone 40 mg Vial IVP SCH (21:23)
--- NOTE | 2018-07-06 22:39 | CP.PCM.HP ---
History of Present Illness - History of Present Illness History of Present Illness: This is a 53 y/o male with hx of COPD and HTN and frequent hospitalization for COPD exacerbation., who returned to ER for chest pain and back pain for two days which worsened in the past 12 hours . Initial labs showed ST T wave changes on EKG. First set of troponin was negative. He has been compliant with his medications since his last hospitalization. He denies having SOB but has slight cough. He has significant smoking history an d had stopped smoking 2 to 3 weeks ago. ECHO in the past hospitalization revealed normal EF. Has not had any stress test recently. He has only partial relief with Morphine. Medical Hx COPD smoking HTN HYpothyroidism Present on Admission - Present on Admission Any Indicators Present on Admission: No History of DVT/PE: No History of Uncontrolled Diabetes: No Urinary Catheter: No Decubitus Ulcer Present: No Review of Systems - Respiratory Respiratory: Cough, Dyspnea Past Patient History - Infectious Disease Hx of Infectious Diseases: None - Past Medical History & Family History Past Medical History?: Yes - Past Social History Smoking Status: Former Smoker - CARDIAC Hx Atrial Fibrillation: Yes Hx Cardia Arrhythmia: (As per MD report) Hx Congestive Heart Failure: (As per MD report) Hx Hypercholesterolemia: Yes Hx Hypertension: Yes Hx Pacemaker: No - PULMONARY Hx Asthma: Yes Hx Chronic Obstructive Pulmonary Disease (COPD): Yes Hx Pneumonia: Yes (08/18/13 as per MD report) Hx Sleep Apnea: Yes - NEUROLOGICAL Hx Alzheimer's Disease: No Hx Multiple Sclerosis: (As per MD report) Hx Parkinson's Disease: (As per MD report) - HEENT Hx HEENT Problems: No - RENAL Hx Chronic Kidney Disease: No - ENDOCRINE/METABOLIC Hx Hyperthyroidism: Yes Hx Hypothyroidism: Yes - HEMATOLOGICAL/ONCOLOGICAL Hx Anemia: No Hx Human Immunodeficiency Virus (HIV): No - INTEGUMENTARY Hx Dermatological Problems: No - MUSCULOSKELETAL/RHEUMATOLOGICAL Hx Falls: No Hx Fractures: Yes (right elbow) Hx Osteoporosis: (As per MD report) Hx Rheumatoid Arthritis: (As per MD report) - GASTROINTESTINAL Hx Crohn's Disease: (As per MD report) Hx Diverticulitis: (As per MD report) Hx Pancreatitis: (As per MD report) - GENITOURINARY/GYNECOLOGICAL Hx Sexually Transmitted Disorders: (As per MD report) - PSYCHIATRIC Hx Anxiety: Yes Hx Bipolar Disorder: (As per MD report) Hx Depression: Yes Hx Paranoia: Yes (As per MD report) Hx Post Traumatic Stress Disorder: (As per MD report) Hx Schizophrenia: (As per MD report) Hx Substance Use: Yes - ANESTHESIA Hx Anesthesia: Yes Hx Anesthesia Reactions: No Hx Malignant Hyperthermia: No Meds Allergies/Adverse Reactions: Allergies Allergy/AdvReac Type Severity Reaction Status Date / Time Iodinated Contrast- Oral and AdvReac ITCHING Verified 07/06/18 17:59 IV Dye Physical Exam - Head Exam Head Exam: NORMAL INSPECTION - Eye Exam Eye Exam: Normal appearance - ENT Exam ENT Exam: Mucous Membranes Moist - Respiratory Exam Respiratory Exam: Decreased Breath Sounds - Cardiovascular Exam Cardiovascular Exam: REGULAR RHYTHM - GI/Abdominal Exam GI & Abdominal Exam: Normal Bowel Sounds - Neurological Exam Neurological exam: CN II-XII Intact Results - Vital Signs Recent Vital Signs: Last Vital Signs Temp 98.1 F 07/06/18 19:46 Pulse 101 H 07/06/18 19:46 Resp 18 07/06/18 19:46 BP 110/67 07/06/18 19:46 Pulse Ox 95 07/06/18 19:46 - Labs Result Diagrams: 07/06/18 08:30 07/06/18 08:30 Labs: Laboratory Results - last 24 hr 07/06/18 07/06/18 07/06/18 08:30 08:30 15:45 WBC 9.6 RBC 4.18 L Hgb 14.1 Hct 42.1 MCV 100.6 H MCH 33.7 H MCHC 33.5 RDW 15.0 H Plt Count 205 MPV 9.2 Neut % (Auto) 74.5 Lymph % (Auto) 19.0 L [place] % (Auto) 5.1 Eos % (Auto) 0.8 Baso % (Auto) 0.6 Neut # (Auto) 7.2 H Lymph # (Auto) 1.8 [place] # (Auto) 0.5 Eos # (Auto) 0.1 Baso # (Auto) 0.1 Sodium 137 Potassium 4.1 Chloride 101 Carbon Dioxide 29 Anion Gap 11 BUN 13 Creatinine 1.1 Est GFR ( Amer) > 60 Est GFR (Non-Af Amer) > 60 Random Glucose 125 H Calcium 9.3 Total Bilirubin 0.9 AST 42 ALT 41 Alkaline Phosphatase 54 Troponin I 0.0880 0.0490 NT-Pro-B Natriuret Pep 779 Total Protein 6.7 Albumin 4.0 Globulin 2.7 Albumin/Globulin Ratio 1.4 Assessment & Plan (1) Chest pain Status: Acute (2) Unstable angina Status: Acute (3) COPD (chronic obstructive pulmonary disease) Status: Acute (4) Hypothyroid Status: Chronic - Assessment and Plan (Free Text) Plan: telemetry Cardiology eval serial cardiac enzymes EKG neb tx pain meds further cardiac eval stress test/ cath
[2018-07-06 22:42] VITALS: BMI 47.0
[2018-07-06] MEDS ORDERED: Enoxaparin 150 mg Syringe SC STA (23:27)
[2018-07-06] MEDS ORDERED: Enoxaparin 150 mg Syringe SC SCH (23:30)
[2018-07-07] MEDS: Promethazine DM 12.5 mg-30 mg/10 ml Syrup PO PRN ×2 (02:00→21:12)
[2018-07-07 06:11] LABS: HDL CHOLESTEROL 71 MG/DL (30-70)
[2018-07-07 06:22] LABS: LDL CHOLESTEROL 187 mg/dL (0-129)
[2018-07-07] MEDS: Levothyroxine 150 MCG TAB PO SCH ×2 (06:26→11:37)
[2018-07-07] MEDS: Albuterol-Ipratrop 3 mg / 0.5 (3 ml) UD INH SCH ×4 (07:31→19:28)
[2018-07-07] MEDS ORDERED: Pantoprazole 20 mg EC Tab PO SCH (09:00)
[2018-07-07] MEDS: Pantoprazole 40 mg EC Tab PO SCH (11:36)
[2018-07-07] MEDS: MethylPREDNISolone 40 mg Vial IVP SCH ×2 (11:37→21:07)
[2018-07-08] MEDS: Levothyroxine 150 MCG TAB PO SCH (06:16)
[2018-07-08] MEDS: Promethazine DM 12.5 mg-30 mg/10 ml Syrup PO PRN (06:16)
[2018-07-08 08:06] VITALS: RESP 20
[2018-07-08] MEDS: Albuterol-Ipratrop 3 mg / 0.5 (3 ml) UD INH SCH ×3 (08:08→15:35)
[2018-07-08] MEDS: Pantoprazole 40 mg EC Tab PO SCH (09:58)
[2018-07-08] MEDS: MethylPREDNISolone 40 mg Vial IVP SCH (09:58)
--- NOTE | 2018-07-08 12:43 | CP.PCM.PCO ---
Assessment/Plan - Assessment/Plan Assessment (Free Text): Pt stable, in bed, no apparent distress noted, aaox3 Heart S1S2,no MRG, lungs clear, no wheeze, rhonchi, abd. soft non-tender, ext. warm, dry, neurovascular check intact Pt is s/p cardiac cath yesterday. Dr. Landers at bedside discussed results of procedure with pt. Dr. Landers clears pt for d/c home, NSAID x [address] Huston, pt is cleared for d/c home on Plavix and Simvastatin Pt counseled on weight loss. Pt will f/u with Dr. Landers in office. Pt may resume home meds, Rx Motrin, Plavix, Simvastatin e-scribed to pt's pharmacy
[2018-07-08 12:56] VITALS: BP 136/81; PULSE 101; TEMP 98.3
[2018-07-08 14:23] LABS: OPIATES, UR NEGATIVE (NEGATIVE); PHENCYCLIDINE, UR NEGATIVE (NEGATIVE)
[2018-07-08 14:25] LABS: BARBITURATES, UR NEGATIVE (NEGATIVE); BENZODIAZEPINES, UR NEGATIVE (NEGATIVE)
[2018-07-08 16:20] VITALS: O2SAT 95
== END 2018-07-08 15:55 | disposition home or self-care (01) | DRG 124 ==
LOC: H.ER 08:02 → H.ERHOLD 10:17 → H.TEL 11:31
PROVIDERS: ADMIT Family Medicine; ATTEND Family Medicine
PROC: 4A023N7 Measurement of Cardiac Sampling and Pressure, Left Heart, Percutaneous Approach (ICD-10-PCS; principal; 2018-07-07)
PROC: B206YZZ Plain Radiography of Right and Left Heart using Other Contrast (ICD-10-PCS; 2018-07-07)
DX: I25.110 Atherosclerotic heart disease of native coronary artery with unstable angina pectoris (principal); J44.1 Chronic obstructive pulmonary disease with (acute) exacerbation; G35 Multiple sclerosis; I10 Essential (primary) hypertension; I48.91 Unspecified atrial fibrillation; K50.90 Crohn's disease, unspecified, without complications; M81.0 Age-related osteoporosis without current pathological fracture; G20 Parkinson's disease; F31.9 Bipolar disorder, unspecified; E03.9 Hypothyroidism, unspecified; E78.00 Pure hypercholesterolemia, unspecified; G47.30 Sleep apnea, unspecified; F41.9 Anxiety disorder, unspecified; Z79.02 Long term (current) use of antithrombotics/antiplatelets; Z79.82 Long term (current) use of aspirin; Z87.01 Personal history of pneumonia (recurrent); Z87.891 Personal history of nicotine dependence; Z91.041 Radiographic dye allergy status